=== PATIENT | female | born 1940 | race Caucasian/White ===

== ENCOUNTER 2022-09-15 11:40 | Emergency (ER) | payer MEDICARE, BC, SELFPAY ==
[2022-09-15 11:53] VITALS: BP 129/78; PULSE 70; RESP 16; TEMP 35.2; O2SAT 97; BMI 22.5
--- NOTE | 2022-09-15 12:41 | CRLHL7_ITS ---
For Patients: As a result of the Century Cures Act, medical imaging exams and procedure reports are released immediately into your electronic medical record. You may view this report before your referring provider. If you have questions, please contact your health care provider. INDICATION: IRREGULAR PULSE TECHNIQUE: Chest 1 view. COMPARISON: 12/19/14 FINDINGS: Cardiovascular and mediastinum: Heart size and vasculature are normal in caliber and appearance. Mediastinum is within normal limits. Lungs and pleural space: Lungs are clear. No sign of infiltrate or mass. No sign of pleural effusion. No pneumothorax. Bones and soft tissues: No significant findings. IMPRESSION: Unremarkable chest. Dictated by: David Uribe MD @ 09/15/2022 13:11:19 (Electronically Signed)
--- NOTE | 2022-09-15 12:43 | ED_ITS ---
HPI - Arrhythmia/Palpitations General Chief Complaint: Arrhythmia/Palpitations Stated Complaint: Afib Time Seen by Provider: 09/15/22 11:59 History of Present Illness HPI narrative: Patient is 82-year-old woman who has history of paroxysmal atrial fibrillation who comes in today with approximately 12 hours of irregular pulse. Patient practices the pill in the pocket technique with flecainide 150 mg. She took a flecainide last night but still feels like her pulse is irregular. She has had no fevers no chills no chest pain no shortness of breath no nausea no vomiting and weakness. She states that she has never had an ablation in the past but she typically goes back in to sinus rhythm on her own. Patient does take dabigatran for anticoagulation as well as extended release metoprolol for rate control/blood pressure. Related Data Home Medications Medication Instructions Recorded Confirmed alendronate 70 mg tablet 70 mg PO 08/29/22 08/29/22 dabigatran etexilate 150 mg capsule mg PO 08/29/22 08/29/22 flecainide 150 mg tablet 150 mg PO DAILY 08/29/22 08/29/22 hydrochlorothiazide 12.5 mg capsule 12.5 mg PO DAILY 08/29/22 08/29/22 metoprolol succinate 25 mg 25 mg PO DAILY 08/29/22 08/29/22 tablet,extended release 24 hr Previous Rx's Medication Instructions Recorded nirmatrelvir 300 mg (150 mg See Rx Instructions PO .COMPLEX 08/29/22 x2)-ritonavir 100 mg tablet,dose #30 ea pack(EUA) (Paxlovid) Allergies Allergy/AdvReac Type Severity Reaction Status Date / Time No Known Drug Allergies Allergy Verified 09/15/22 12:00 Review of Systems Status of ROS: Reports: 10 or more systems reviewed and unremarkable except as noted in History and below [facility] Medical History Atrial fibrillation ?I48.91 - Unspecified atrial fibrillation (ICD-10) COVID ?U07.1 - COVID-19 (ICD-10) Social History Smoking Status: Never smoker Exam Narrative: Exam Narrative: EXAM GENERAL: Patient appears comfortable and well. EYES: No scleral icterus. ENT: Tympanic membranes and oropharynx normal. THYROID: no thyroid nodules or thyromegaly. LYMPH: No supraclavicular or cervical lymphadenopathy. SKIN: Visible skin seen during exam normal or with benign process only. EXT: No dependent lower extremity pedal edema. HEART: Regular rate with occasional skipped beat. No rubs clicks gallops or murmurs. LUNGS: Clear to auscultation bilaterally with no crackles or wheezes. ABD: Soft, non tender, non distended. PSYCH: Good eye contact, speech is not pressured. Const: Vital Signs, click to edit/add: Vital Signs - 24 hr 09/15/22 11:53 Temperature 95.4 F L Pulse Rate [Pulse Oximeter] 70 Respiratory Rate 16 Blood Pressure [Ri ght Upper Arm] 129/78 Pulse Oximetry 97 Oxygen Delivery Me thod Room Air Course Course Hospital Course: EKG chest x-ray troponin CBC basic metabolic panel ordered. Patient seen and examined. Vital Signs Vital signs: Initial Vital Signs Temperature 95.4 F L 09/15/22 11:53 Temperature Source Temporal Artery Scan 09/15/22 11:53 Pulse Rate 70 09/15/22 11:53 Pulse Rhythm Irregular 09/15/22 11:53 Respiratory Rate 16 09/15/22 11:53 Blood Pressure 129/78 09/15/22 11:53 Blood Pressure Mean 95 09/15/22 11:53 Blood Pressure Position Sitting 09/15/22 11:53 Pulse Oximetry 97 09/15/22 11:53 Oxygen Delivery Method Room Air 09/15/22 11:53 Vital Signs Temperature 95.4 F L 09/15/22 11:53 Pulse Rate 70 09/15/22 11:53 Respiratory Rate 16 09/15/22 11:53 Blood Pressure 129/78 09/15/22 11:53 Pulse Oximetry 97 09/15/22 11:53 Oxygen Delivery Method Room Air 09/15/22 11:53 Temperature 95.4 F L 09/15/22 11:53 Pulse Rate 70 09/15/22 11:53 Respiratory Rate 16 09/15/22 11:53 Blood Pressure 129/78 09/15/22 11:53 Pulse Oximetry 97 09/15/22 11:53 Oxygen Delivery Method Room Air 09/15/22 11:53 MDM - Arrhythmia/Palpitations MDM Narrative Medical decision making narrative: Patient is a 82-year-old woman with history of paroxysmal atrial fibrillation anticoagulated who presents with symptoms of irregular pulse. On the monitor I do note some occasional PVCs. On her EKG I see normal sinus rhythm. Troponin is negative chest x-ray is unremarkable with the exception of chronic scoliosis. Electrolytes are stable. This time patient will continue her outpatient medication. She does have follow-up with Cardiology scheduled. Otherwise reassurance is offered. Differential Diagnosis Differential diagnosis: Likely palpitations, anxiety, sinus tachycardia, artial fibrillation, artial flutter, ventricular premature beats, supraventricular tachycardia, ventricular tachycardia and WPW Lab Data Labs: Lab Results 09/15/22 Range/Units 12:49 WBC 4.72 (4.50-11.00) K/uL RBC 3.80 L (4.00-5.20) m/uL Hgb 12.3 (12.0-16.0) gm/dL Hct 36.9 (33.0-51.0) % MCV 97 (80-100) fL MCH 32 (26-34) pg MCHC 33 (32-36) gm/dL RDW Coeff of Kandi 12.5 (11.5-15.5) % Plt Count 300 (140-440) K/uL Neut % (Auto) 67.0 (42.0-72.0) % Lymph % (Auto) 20.1 (20-44) % [place] % (Auto) 10.4 (0.0-11.0) % Eos % (Auto) 1.9 (0.0-7.0) % Baso % (Auto) 0.4 (0.0-3.0) % Neut # (Auto) 3.16 (1.7-7.0) K/uL Lymph # (Auto) 0.95 (0.90-2.90) K/uL [place] # (Auto) 0.50 (0.00-0.90) K/UL Eos # (Auto) 0.09 (0.00-0.50) K/uL Baso # (Auto) 0.02 (0.00-0.30) K/uL Sodium 136 (135-149) mmol/L Potassium 4.6 (3.6-5.1) mmol/L Chloride 101 (96-114) mmol/L Carbon Dioxide 33 H (20-32) mmol/L BUN 14 (7-30) mg/dL Creatinine 0.7 (0.5-1.5) mg/dL Estimated Creat Clear 35.26 Estimated GFR 86 ml/min Glucose 95 (60-115) mg/dL Calcium 9.1 (8.4-10.6) mg/dL Troponin I < 0.01 L (0.01-0.04) ng/mL Discharge Plan Discharge Clinical Impression: Atrial fibrillation Patient Disposition: Home, Self-Care Condition: Stable Instructions: A-fib (Atrial Fibrillation) (ED) Additional Instructions: He rhythm is normal now. Your evaluation is also normal. Please plan to continue her current medications and follow-up with cardiology as scheduled. Activity Level: No Restrictions Discharge Diet: Regular Prescriptions: No Action metoprolol succinate 25 mg tablet extended release 24 hr 25 mg PO DAILY hydrochlorothiazide 12.5 mg capsule 12.5 mg PO DAILY dabigatran etexilate 150 mg capsule PO flecainide 150 mg tablet 150 mg PO DAILY alendronate 70 mg tablet 70 mg PO Paxlovid (EUA) 300 mg (150 mg x 2)-100 mg tablets,dose pack See Rx Instructions PO .COMPLEX Qty: 30 0RF Rx Instructions: take TWO 150 mg tablets of nirmatrelvir with ONE 100 mg tablet of ritonavir twice daily for 5 days PO Follow Up/Referrals: Alejandrina Kellogg MD [Primary Care Provider] - Stand Alone Forms: MyHealth Info Instructions
[2022-09-15 12:55] LABS: Basophils Absolute Auto 0.02 K/uL (0.00-0.30); Basophils Percent Auto 0.4 % (0.0-3.0); Eosinophils Absolute Auto 0.09 K/uL (0.00-0.50); Eosinophils Percent Auto 1.9 % (0.0-7.0); Hematocrit 36.9 % (33.0-51.0); Hemoglobin* 12.3 gm/dL (12.0-16.0); Immature Granulocytes Abs Auto 0.01 K/uL (0.00-0.30); Immature Granulocytes Pct Auto 0.2 %; Lymphocytes Absolute Auto 0.95 K/uL (0.90-2.90); Lymphocytes Percent Auto 20.1 % (20-44); Mean Corpuscular HGB Conc 33 gm/dL (32-36); Mean Corpuscular Hemoglobin 32 pg (26-34); Mean Corpuscular Volume 97 fL (80-100); Monocytes Percent Auto 10.4 % (0.0-11.0); Neutrophils Absolute Auto 3.16 K/uL (1.7-7.0); Platelet Count* 300 K/uL (140-440); RDW Coefficient of Variation % 12.5 % (11.5-15.5); White Blood Count* 4.72 K/uL (4.50-11.00)
[2022-09-15 13:09] LABS: Chloride* 101 mmol/L (96-114); Sodium* 136 mmol/L (135-149)
[2022-09-15 13:10] LABS: Potassium* 4.6 mmol/L (3.6-5.1)
[2022-09-15 13:12] LABS: Carbon Dioxide* 33 mmol/L (20-32); Creatinine* 0.7 mg/dL (0.5-1.5); Est. Creatinine Clearance* 35.26; Estimated Glomerular Filt Rate 86 ml/min
[2022-09-15 13:13] LABS: Blood Urea Nitrogen* 14 mg/dL (7-30); Calcium* 9.1 mg/dL (8.4-10.6); Glucose* 95 mg/dL (60-115)
[2022-09-15 13:16] LABS: Slide Review Reflex No
[2022-09-15 13:29] LABS: Troponin I* < 0.01 ng/mL (0.01-0.04)
[2022-09-15 13:56] VITALS: BP 118/77; PULSE 70; RESP 16; O2SAT 96
== END 2022-09-15 14:08 | disposition home or self-care (01) ==
PROVIDERS: Emergency Provider Internal Medicine; PCP Family Medicine
DX: R07.89 Other chest pain (principal)
CPT/HCPCS: 36415; 71045; 80048; 84484; 85025; 93005; 99283; 99284

== ENCOUNTER 2023-05-18 11:18 | Outpatient (CLI) | payer MEDICARE, BC, SELFPAY | END 2023-05-18 11:19 | disposition home or self-care (01) | LOC: AMB 05-19 09:13 | PROVIDERS: PCP Family Medicine; Visit Provider Family Medicine | DX: U07.1 COVID-19 (principal); R42 Dizziness and giddiness; I95.9 Hypotension, unspecified | CPT/HCPCS: A0425; A0427 ==

== ENCOUNTER 2023-05-18 12:09 | Emergency (ER) | payer MEDICARE, BC, SELFPAY ==
[2023-05-18] VITALS (30 sets, daily range): BP systolic 93–119; BP diastolic 56–103; PULSE 83–160; RESP 18; TEMP 36.9; O2SAT 87–99; BMI 21.3
--- NOTE | 2023-05-18 12:45 | ED.DIZZY ---
HPI - Dizziness General Time Seen by Provider: 12:45 <Sarah Patel MD - Last Filed: 05/18/23 16:57> Date Seen: 05/18/23 <Sarah Patel MD - Last Filed: 05/18/23 16:57> Chief Complaint: Dizziness/Vertigo <Sarah Patel MD - Last Filed: 05/18/23 16:57> Stated Complaint: Lightheaded <Sarah Patel MD - Last Filed: 05/18/23 16:57> Time Seen by Provider: 05/18/23 12:45 <Sarah Patel MD - Last Filed: 05/18/23 16:57> Source: patient, family and RN notes reviewed <Sarah Patel MD - Last Filed: 05/18/23 16:57> Mode of arrival: EMS <Sarah Patel MD - Last Filed: 05/18/23 16:57> Limitations: no limitations <Sarah Patel MD - Last Filed: 05/18/23 16:57> History of Present Illness HPI Narrative: Shanti is a very pleasant 82-year-old female with a known history of atrial fibrillation currently on Pradaxa who also tested positive for COVID on MondayMay 14 who comes to the emergency room for evaluation of syncope x2. Patient notes that today she was at the kitchen sink and suddenly began to feel lightheaded. She denies vertigo. She notes that she felt like she was going to pass out so she was able to kneel on the floor. Her came in the kitchen and was able to get her to sit on the chair. She notes that she gets short of breath when this does occur. This is the 2nd time this has happened. On MondayMay 16 or 48 hours ago she had a similar incident where she actually fell onto her bottom. She notes she has has bruises on her left hip. She has been able to walk since that time. She notes no chest pain when this has occurred. She did take her medications late yesterday and actually skipped her hydrochlorothiazide as she felt that she was dehydrated. Her only symptom from COVID was a runny nose with a admittedly slight sore throat as well. She is not short of breath when lying down. She is not dizzy when lying down. We do discuss lightheadedness versus vertigo and patient denies vertigo. Patient denies hitting her head. She has no headache or visual changes. No lower extremity edema. No history of DVT. Again, on an anticoagulant. <Sarah Patel MD - Last Filed: 05/18/23 16:57> Related Data Home Medications: Home Medications Medication Instructions Recorded Confirmed alendronate 70 mg tablet 70 mg PO 08/29/22 08/29/22 dabigatran etexilate 150 mg capsule mg PO 08/29/22 08/29/22 flecainide 150 mg tablet 150 mg PO DAILY 08/29/22 08/29/22 hydrochlorothiazide 12.5 mg capsule 12.5 mg PO DAILY 08/29/22 08/29/22 metoprolol succinate 25 mg 25 mg PO DAILY 08/29/22 08/29/22 tablet,extended release 24 hr Previous Rx's Medication Instructions Recorded nirmatrelvir 300 mg (150 mg See Rx Instructions PO .COMPLEX 08/29/22 x2)-ritonavir 100 mg tablet,dose #30 ea pack (Paxlovid) <Sarah Patel MD - Last Filed: 05/18/23 16:57> Allergies/Adverse Reactions: Allergies Allergy/AdvReac Type Severity Reaction Status Date / Time No Known Drug Allergies Allergy Verified 09/15/22 12:00 <Sarah Patel MD - Last Filed: 05/18/23 16:57> Review of Systems Status of ROS: Reports: 10 or more systems reviewed and unremarkable except as noted in History and below <Sarah Patel MD - Last Filed: 05/18/23 16:57> Const: Denies: fever, chills or fatigue <Sarah Patel MD - Last Filed: 05/18/23 16:57> Eyes: Reports: other (Does feel like she loses vision before she passes out.) <Sarah Patel MD - Last Filed: 05/18/23 16:57> ENMT: Reports: nasal discharge and nasal congestion; Denies: throat pain, throat swelling, difficulty swallowing or hoarseness <Sarah Patel MD - Last Filed: 05/18/23 16:57> Cardio: Reports: lightheadedness and shortness of breath with exertion; Denies: chest pain, palpitations or swelling of feet/ankles <Sarah Patel MD - Last Filed: 05/18/23 16:57> Resp: Reports: shortness of breath; Denies: cough or wheezing <Sarah Patel MD - Last Filed: 05/18/23 16:57> GI: Denies: abdominal pain, nausea, vomiting, diarrhea or difficulty swallowing <Sarah Patel MD - Last Filed: 05/18/23 16:57> : Denies: painful urination <Sarah Patel MD - Last Filed: 05/18/23 16:57> Neuro: Denies: headache or numbness in extremities <Sarah Patel MD - Last Filed: 05/18/23 16:57> Endo: Denies: fatigue <Sarah Patel MD - Last Filed: 05/18/23 16:57> Allergy/Immuno: Denies: throat swelling or wheezing <Sarah Patel MD - Last Filed: 05/18/23 16:57> [facility] Medical History: Medical History Atrial fibrillation ?I48.91 - Unspecified atrial fibrillation (ICD-10) COVID ?U07.1 - COVID-19 (ICD-10) <Sarah Patel MD - Last Filed: 05/18/23 16:57> Social History: Social History Smoking Status: Never smoker Non-prescribed substance use: denies use <Sarah Patel MD - Last Filed: 05/18/23 16:57> Exam Narrative: Exam Narrative: Alert and oriented. Nontoxic in appearance. Slightly pale. EOM is full without nystagmus. Head is atraumatic normocephalic. Oral cavity moist mucous membranes. Neck is supple. Heart with tachycardic rate 105-122. It is irregular. Lungs are clear bilaterally. Abdomen soft nontender. Lower extremities without edema. Resolving bruise noted on left lower auguste. <Sarah Patel MD - Last Filed: 05/18/23 16:57> Const: Vital Signs, click to edit/add: Vital Signs - 24 hr 05/18/23 12:19 05/18/23 12:29 05/18/23 12:30 Temperature 98.5 F Pulse Rate 99 106 H Pulse Rate [Right Pulse Oximeter] 100 Pulse Rate [orthos tatic lying Right Pulse Oximeter] Pulse Rate [orthos tatic sitting Righ t] Pulse Rate [orthos tatic standing Rig ht] Respiratory Rate 18 Blood Pressure Blood Pressure [Ri ght Upper Arm] 111/77 Blood Pressure [or thostatic lying Ri ght Arm] Blood Pressure [or thostatic sitting Right Arm] Blood Pressure [or thostatic standing Right Arm] Pulse Oximetry 98 98 96 Oxygen Delivery Me thod Room Air 05/18/23 12:45 05/18/23 13:00 05/18/23 13:15 Temperature Pulse Rate 99 105 H 95 Pulse Rate [Right Pulse Oximeter] Pulse Rate [orthos tatic lying Right Pulse Oximeter] Pulse Rate [orthos tatic sitting Righ t] Pulse Rate [orthos tatic standing Rig ht] Respiratory Rate Blood Pressure Blood Pressure [Ri ght Upper Arm] Blood Pressure [or thostatic lying Ri ght Arm] Blood Pressure [or thostatic sitting Right Arm] Blood Pressure [or thostatic standing Right Arm] Pulse Oximetry 98 96 99 Oxygen Delivery Me thod 05/18/23 13:17 05/18/23 13:20 05/18/23 13:23 Temperature Pulse Rate 105 H 124 H Pulse Rate [Right Pulse Oximeter] Pulse Rate [orthos tatic lying Right Pulse Oximeter] Pulse Rate [orthos tatic sitting Righ t] Pulse Rate [orthos tatic standing Rig ht] Respiratory Rate Blood Pressure 111/76 96/56 L 93/74 Blood Pressure [Ri ght Upper Arm] Blood Pressure [or thostatic lying Ri ght Arm] Blood Pressure [or thostatic sitting Right Arm] Blood Pressure [or thostatic standing Right Arm] Pulse Oximetry 99 92 Oxygen Delivery Me thod 05/18/23 13:28 05/18/23 13:30 05/18/23 13:45 Temperature Pulse Rate 93 95 Pulse Rate [Right Pulse Oximeter] Pulse Rate [orthos tatic lying Right Pulse Oximeter] 101 H Pulse Rate [orthos tatic sitting Righ t] 130 H Pulse Rate [orthos tatic standing Rig ht] 160 H Respiratory Rate Blood Pressure Blood Pressure [Ri ght Upper Arm] Blood Pressure [or thostatic lying Ri ght Arm] 111/76 Blood Pressure [or thostatic sitting Right Arm] 96/56 L Blood Pressure [or thostatic standing Right Arm] 93/74 Pulse Oximetry 97 97 Oxygen Delivery Me thod 05/18/23 14:00 05/18/23 14:15 05/18/23 14:30 Temperature Pulse Rate 83 94 Pulse Rate [Right Pulse Oximeter] Pulse Rate [orthos tatic lying Right Pulse Oximeter] Pulse Rate [orthos tatic sitting Righ t] Pulse Rate [orthos tatic standing Rig ht] Respiratory Rate Blood Pressure Blood Pressure [Ri ght Upper Arm] Blood Pressure [or thostatic lying Ri ght Arm] Blood Pressure [or thostatic sitting Right Arm] Blood Pressure [or thostatic standing Right Arm] Pulse Oximetry 90 96 87 L Oxygen Delivery Me thod 05/18/23 14:50 05/18/23 15:42 05/18/23 15:44 Temperature Pulse Rate 112 H 109 H Pulse Rate [Right Pulse Oximeter] Pulse Rate [orthos tatic lying Right Pulse Oximeter] Pulse Rate [orthos tatic sitting Righ t] Pulse Rate [orthos tatic standing Rig ht] Respiratory Rate Blood Pressure 114/89 119/103 H Blood Pressure [Ri ght Upper Arm] Blood Pressure [or thostatic lying Ri ght Arm] Blood Pressure [or thostatic sitting Right Arm] Blood Pressure [or thostatic standing Right Arm] Pulse Oximetry 96 91 Oxygen Delivery [place] thod 05/18/23 15:45 05/18/23 16:00 05/18/23 16:15 Temperature Pulse Rate 124 H 93 109 H Pulse Rate [Right Pulse Oximeter] Pulse Rate [orthos tatic lying Right Pulse Oximeter] Pulse Rate [orthos tatic sitting Righ t] Pulse Rate [orthos tatic standing Rig ht] Respiratory Rate Blood Pressure Blood Pressure [Ri ght Upper Arm] Blood Pressure [or thostatic lying Ri ght Arm] Blood Pressure [or thostatic sitting Right Arm] Blood Pressure [or thostatic standing Right Arm] Pulse Oximetry 98 98 88 Oxygen Delivery Me thod 05/18/23 16:30 05/18/23 16:45 05/18/23 17:00 Temperature Pulse Rate 109 H 107 H 94 Pulse Rate [Right Pulse Oximeter] Pulse Rate [orthos tatic lying Right Pulse Oximeter] Pulse Rate [orthos tatic sitting Righ t] Pulse Rate [orthos tatic standing Rig ht] Respiratory Rate Blood Pressure Blood Pressure [Ri ght Upper Arm] Blood Pressure [or thostatic lying Ri ght Arm] Blood Pressure [or thostatic sitting Right Arm] Blood Pressure [or thostatic standing Right Arm] Pulse Oximetry 96 94 Oxygen Delivery Me thod 05/18/23 17:15 05/18/23 17:30 05/18/23 17:45 Temperature Pulse Rate 94 95 107 H Pulse Rate [Right Pulse Oximeter] Pulse Rate [orthos tatic lying Right Pulse Oximeter] Pulse Rate [orthos tatic sitting Righ t] Pulse Rate [orthos tatic standing Rig ht] Respiratory Rate Blood Pressure Blood Pressure [Ri ght Upper Arm] Blood Pressure [or thostatic lying Ri ght Arm] Blood Pressure [or thostatic sitting Right Arm] Blood Pressure [or thostatic standing Right Arm] Pulse Oximetry 90 96 97 Oxygen Delivery Me thod 05/18/23 18:00 05/18/23 18:26 05/18/23 18:30 Temperature Pulse Rate 115 H 113 H 84 Pulse Rate [Right Pulse Oximeter] Pulse Rate [orthos tatic lying Right Pulse Oximeter] Pulse Rate [orthos tatic sitting Righ t] Pulse Rate [orthos tatic standing Rig ht] Respiratory Rate Blood Pressure Blood Pressure [Ri ght Upper Arm] Blood Pressure [or thostatic lying Ri ght Arm] Blood Pressure [or thostatic sitting Right Arm] Blood Pressure [or thostatic standing Right Arm] Pulse Oximetry 93 95 96 Oxygen Delivery Me thod <Sarah Patel MD - Last Filed: 05/18/23 16:57> Vital Signs, click to edit/add: Vital Signs - 24 hr 05/18/23 12:19 05/18/23 12:29 05/18/23 12:30 Temperature 98.5 F Pulse Rate 99 106 H Pulse Rate [Right Pulse Oximeter] 100 Pulse Rate [orthos tatic lying Right Pulse Oximeter] Pulse Rate [orthos tatic sitting Righ t] Pulse Rate [orthos tatic standing Rig ht] Respiratory Rate 18 Blood Pressure Blood Pressure [Ri ght Upper Arm] 111/77 Blood Pressure [or thostatic lying Ri ght Arm] Blood Pressure [or thostatic sitting Right Arm] Blood Pressure [or thostatic standing Right Arm] Pulse Oximetry 98 98 96 Oxygen Delivery Me thod Room Air 05/18/23 12:45 05/18/23 13:00 05/18/23 13:15 Temperature Pulse Rate 99 105 H 95 Pulse Rate [Right Pulse Oximeter] Pulse Rate [orthos tatic lying Right Pulse Oximeter] Pulse Rate [orthos tatic sitting Righ t] Pulse Rate [orthos tatic standing Rig ht] Respiratory Rate Blood Pressure Blood Pressure [Ri ght Upper Arm] Blood Pressure [or thostatic lying Ri ght Arm] Blood Pressure [or thostatic sitting Right Arm] Blood Pressure [or thostatic standing Right Arm] Pulse Oximetry 98 96 99 Oxygen Delivery Me thod 05/18/23 13:17 05/18/23 13:20 05/18/23 13:23 Temperature Pulse Rate 105 H 124 H Pulse Rate [Right Pulse Oximeter] Pulse Rate [orthos tatic lying Right Pulse Oximeter] Pulse Rate [orthos tatic sitting Righ t] Pulse Rate [orthos tatic standing Rig ht] Respiratory Rate Blood Pressure 111/76 96/56 L 93/74 Blood Pressure [Ri ght Upper Arm] Blood Pressure [or thostatic lying Ri ght Arm] Blood Pressure [or thostatic sitting Right Arm] Blood Pressure [or thostatic standing Right Arm] Pulse Oximetry 99 92 Oxygen Delivery Me thod 05/18/23 13:28 05/18/23 13:30 05/18/23 13:45 Temperature Pulse Rate 93 95 Pulse Rate [Right Pulse Oximeter] Pulse Rate [orthos tatic lying Right Pulse Oximeter] 101 H Pulse Rate [orthos tatic sitting Righ t] 130 H Pulse Rate [orthos tatic standing Rig ht] 160 H Respiratory Rate Blood Pressure Blood Pressure [Ri ght Upper Arm] Blood Pressure [or thostatic lying Ri ght Arm] 111/76 Blood Pressure [or thostatic sitting Right Arm] 96/56 L Blood Pressure [or thostatic standing Right Arm] 93/74 Pulse Oximetry 97 97 Oxygen Delivery Me thod 05/18/23 14:00 05/18/23 14:15 05/18/23 14:30 Temperature Pulse Rate 83 94 Pulse Rate [Right Pulse Oximeter] Pulse Rate [orthos tatic lying Right Pulse Oximeter] Pulse Rate [orthos tatic sitting Righ t] Pulse Rate [orthos tatic standing Rig ht] Respiratory Rate Blood Pressure Blood Pressure [Ri ght Upper Arm] Blood Pressure [or thostatic lying Ri ght Arm] Blood Pressure [or thostatic sitting Right Arm] Blood Pressure [or thostatic standing Right Arm] Pulse Oximetry 90 96 87 L Oxygen Delivery [place] thod 05/18/23 14:50 05/18/23 15:42 05/18/23 15:44 Temperature Pulse Rate 112 H 109 H Pulse Rate [Right Pulse Oximeter] Pulse Rate [orthos tatic lying Right Pulse Oximeter] Pulse Rate [orthos tatic sitting Righ t] Pulse Rate [orthos tatic standing Rig ht] Respiratory Rate Blood Pressure 114/89 119/103 H Blood Pressure [Ri ght Upper Arm] Blood Pressure [or thostatic lying Ri ght Arm] Blood Pressure [or thostatic sitting Right Arm] Blood Pressure [or thostatic standing Right Arm] Pulse Oximetry 96 91 [facility] 05/[facility]/23 15:45 05/18/23 16:00 05/18/23 16:15 Temperature Pulse Rate 124 H 93 109 H Pulse Rate [Right Pulse Oximeter] Pulse Rate [orthos tatic lying Right Pulse Oximeter] Pulse Rate [orthos tatic sitting Righ t] Pulse Rate [orthos tatic standing Rig ht] Respiratory Rate Blood Pressure Blood Pressure [Ri ght Upper Arm] Blood Pressure [or thostatic lying Ri ght Arm] Blood Pressure [or thostatic sitting Right Arm] Blood Pressure [or thostatic standing Right Arm] Pulse Oximetry 98 98 88 Oxygen Delivery [place] thod 05/18/23 16:30 05/18/23 16:45 05/18/23 17:00 Temperature Pulse Rate 109 H 107 H 94 Pulse Rate [Right Pulse Oximeter] Pulse Rate [orthos tatic lying Right Pulse Oximeter] Pulse Rate [orthos tatic sitting Righ t] Pulse Rate [orthos tatic standing Rig ht] Respiratory Rate Blood Pressure Blood Pressure [Ri ght Upper Arm] Blood Pressure [or thostatic lying Ri ght Arm] Blood Pressure [or thostatic sitting Right Arm] Blood Pressure [or thostatic standing Right Arm] Pulse Oximetry 96 94 Oxygen Delivery [place] thod 05/18/23 17:15 05/18/23 17:30 05/18/23 17:45 Temperature Pulse Rate 94 95 107 H Pulse Rate [Right Pulse Oximeter] Pulse Rate [orthos tatic lying Right Pulse Oximeter] Pulse Rate [orthos tatic sitting Righ t] Pulse Rate [orthos tatic standing Rig ht] Respiratory Rate Blood Pressure Blood Pressure [Ri ght Upper Arm] Blood Pressure [or thostatic lying Ri ght Arm] Blood Pressure [or thostatic sitting Right Arm] Blood Pressure [or thostatic standing Right Arm] Pulse Oximetry 90 96 97 Oxygen Delivery Me thod 05/18/23 18:00 05/18/23 18:26 05/18/23 18:30 Temperature Pulse Rate 115 H 113 H 84 Pulse Rate [Right Pulse Oximeter] Pulse Rate [orthos tatic lying Right Pulse Oximeter] Pulse Rate [orthos tatic sitting Righ t] Pulse Rate [orthos tatic standing Rig ht] Respiratory Rate Blood Pressure Blood Pressure [Ri ght Upper Arm] Blood Pressure [or thostatic lying Ri ght Arm] Blood Pressure [or thostatic sitting Right Arm] Blood Pressure [or thostatic standing Right Arm] Pulse Oximetry 93 95 96 Oxygen Delivery Me thod <Sg Monteiro DO - Last Filed: 05/18/23 19:15> Documenting provider has reviewed patient's vital signs: yes <Sarah Patel MD - Last Filed: 05/18/23 16:57> Course Reevaluation(s) Reevaluation #1: Patient notes that after the chest x-ray she was left sitting up and after the fluids her symptoms of lightheadedness have resolved. Her heart rate has decreased to between 80 and 100s. Her chest x-ray is reassuring. Her O2 sats remain in the high 90s and she has no cough or shortness of breath at this time. Will give 2 L of normal saline as orthostatic vital signs were positive. Although her blood pressure has been running low she is on daily metoprolol which she has not taken today. Will give her her normal dose of 25 mg as I believe she will feel better if her heart rate is not in the 120s when moving about. Her arrives and is very loving and supportive. He initially describes his as being unconscious for minutes at a time. However upon further discussion this was noted to be that she was not normal for minutes but she was not unconscious. <Sarah Patel MD - Last Filed: 05/18/23 16:57> Reevaluation #2: Shanti states that she is not normally in atrial fibrillation but feels the need to use flecainide every few months for an irregular heartbeat. She is in obvious atrial fibrillation today. She notes that flecainide has worked very well for her in the past but she has had mixed messages regarding using it. One rail maintenance worker said she should be using and 1 told her not to. However, she has had a recent workup and was told that her heart was very healthy. I will speak to Cardiology regarding this. Initially metoprolol seem to be helping with decreased heart rate down to 80s to 90s with rest but now it is climbing back up again. Fortunately, her lightheadedness has entirely resolved after fluids. She was up walking has no shortness of breath, continues to have no evidence of chest pain and lightheadedness again is entirely resolved. <Sarah Patel MD - Last Filed: 05/18/23 16:57> Reevaluation #3: Nursing staff contacts me as Shanti told them that when she was wiping the genital area prior to leaving a urine sample she noticed some blood on the white. She has never had this in the past. She does not note any trauma. I did examine her bottom and she has a linear area of mucosal excoriation on the medial aspect of the labia majora just outside the labia minora. There is no surrounding erythema. This looks as if it was trauma. <Sarah Patel MD - Last Filed: 05/18/23 16:57> Consultations Consultation #1: Consult with of [facility] Cardiology regarding use of flecainide. Physician feels that this would be safer limited to try. Do inform him that Shanti is COVID positive but really has no significant systemic symptoms. We have confirmed that her dose is 150 mg from the [facility] system. <Sarah Patel MD - Last Filed: 05/18/23 16:57> Vital Signs Vital signs: Initial Vital Signs Temperature 98.5 F 05/18/23 12:19 Temperature Source Temporal Artery Scan 05/18/23 12:19 Pulse Rate 100 05/18/23 12:19 Respiratory Rate 18 05/18/23 12:19 Blood Pressure 111/77 05/18/23 12:19 Blood Pressure Mean 88 05/18/23 12:19 Blood Pressure Position Sitting 05/18/23 12:19 Pulse Oximetry 98 05/18/23 12:19 Oxygen Delivery Method Room Air 05/18/23 12:19 Vital Signs Temperature 98.5 F 05/18/23 12:19 Pulse Rate 100 05/18/23 12:19 Respiratory Rate 18 05/18/23 12:19 Blood Pressure 111/77 05/18/23 12:19 Pulse Oximetry 98 05/18/23 12:19 Oxygen Delivery Method Room Air 05/18/23 12:19 Temperature 98.5 F 05/18/23 12:19 Pulse Rate 84 05/18/23 18:30 Respiratory Rate 18 05/18/23 12:19 Blood Pressure 119/103 H 05/18/23 15:42 Pulse Oximetry 96 05/18/23 18:30 Oxygen Delivery Method Room Air 05/18/23 12:19 <Sarah Patel MD - Last Filed: 05/18/23 16:57> Initial Vital Signs Temperature 98.5 F 05/18/23 12:19 Temperature Source Temporal Artery Scan 05/18/23 12:19 Pulse Rate 100 05/18/23 12:19 Respiratory Rate 18 05/18/23 12:19 Blood Pressure 111/77 05/18/23 12:19 Blood Pressure Mean 88 05/18/23 12:19 Blood Pressure Position Sitting 05/18/23 12:19 Pulse Oximetry 98 05/18/23 12:19 Oxygen Delivery Method Room Air 05/18/23 12:19 Vital Signs Temperature 98.5 F 05/18/23 12:19 Pulse Rate 100 05/18/23 12:19 Respiratory Rate 18 05/18/23 12:19 Blood Pressure 111/77 05/18/23 12:19 Pulse Oximetry 98 05/18/23 12:19 Oxygen Delivery Method Room Air 05/18/23 12:19 Temperature 98.5 F 05/18/23 12:19 Pulse Rate 84 05/18/23 18:30 Respiratory Rate 18 05/18/23 12:19 Blood Pressure 119/103 H 05/18/23 15:42 Pulse Oximetry 96 05/18/23 18:30 Oxygen Delivery Method Room Air 05/18/23 12:19 <Sg Monteiro DO - Last Filed: 05/18/23 19:15> Medications Administered Medications: Discontinued Medications Generic Name Dose Route Start Last Admin Trade Name Freq PRN Reason Stop Dose Admin Flecainide Acetate 150 mg 05/18/23 16:48 05/18/23 17:09 Flecainide Acetate 50 Mg Tablet PO 05/18/23 16:49 150 mg ONCE ONE Administration Sodium Chloride 1,000 mls @ 1,000 mls/hr 05/18/23 13:01 05/18/23 14:41 0.9 % Sodium Chloride 1000 Ml IV 05/18/23 14:00 Infused .Q1H ROSA Infusion Sodium Chloride 1,000 mls @ 1,000 mls/hr 05/18/23 14:26 05/18/23 18:24 0.9 % Sodium Chloride 1000 Ml IV 05/18/23 15:25 Infused .Q1H ROSA Infusion Metoprolol Succinate 25 mg 05/18/23 14:45 05/18/23 14:50 Metoprolol Succinate (Xl) 25 Mg Tab PO 05/18/23 14:46 25 mg ONCE ONE Administration <Sarah Patel MD - Last Filed: 05/18/23 16:57> Discontinued Medications Generic Name Dose Route Start Last Admin Trade Name Freq PRN Reason Stop Dose Admin Flecainide Acetate 150 mg 05/18/23 16:48 05/18/23 17:09 Flecainide Acetate 50 Mg Tablet PO 05/18/23 16:49 150 mg ONCE ONE Administration Sodium Chloride 1,000 mls @ 1,000 mls/hr 05/18/23 13:01 05/18/23 14:41 0.9 % Sodium Chloride 1000 Ml IV 05/18/23 14:00 Infused .Q1H ROSA Infusion Sodium Chloride 1,000 mls @ 1,000 mls/hr 05/18/23 14:26 05/18/23 18:24 0.9 % Sodium Chloride 1000 Ml IV 05/18/23 15:25 Infused .Q1H ROSA Infusion Metoprolol Succinate 25 mg 05/18/23 14:45 05/18/23 14:50 Metoprolol Succinate (Xl) 25 Mg Tab PO 05/18/23 14:46 25 mg ONCE ONE Administration <Sg Monteiro DO - Last Filed: 05/18/23 19:15> MDM - Dizziness MDM Narrative Medical decision making narrative: 1. Syncope-patient was orthostatic upon her arrival and has had complete resolution of her symptoms with 2 L of fluid. Troponin is negative x2 and EKGs are reassuring. Certainly she is showing atrial fibrillation but no long pauses. She is currently on a blood thinner and did have her dose yesterday. Upon discussion with her it sounded like she was unresponsive for minutes but we have clarified that to be not her normal self but she was making purposeful movements. Lying down she felt fine she only had symptoms when she would stand up and again now these have resolved. No evidence of acute coronary event, PE as O2 sats are normal. Fluids have resolved the situation. 2. Atrial fibrillation with RVR-patient did receive metoprolol 25 mg which is are normal dose that she did not have today in the ED. Initially this did seem to help her AFib but now her heart rate is climbing again. We will try flecainide to see if this improves are situation. I did speak to Cardiology regarding the use of this medication in the ED. 3. COVID-patient has normal O2 sats, clear x-ray and really her only symptom is a runny nose. She is not currently on Paxlovid. 4. Disposition-patient will be discharged home <Sarah Patel MD - Last Filed: 05/18/23 16:57> Patient was signed out to me pending heart rate recheck. After 45 minutes after she got the flecainide patient was still tachycardic gone from the will low 100s to the mid 140s. It was decided to page Cardiology. Right before they called back she went into normal sinus rhythm and a repeat EKG was done showing a normal sinus rhythm. EKG showed normal sinus rhythm they have 86 beats per minute, normal intervals, normal axis, no ST or T-wave abnormalities. She is asymptomatic at this time. Patient will follow-up with primary care provider. <Sg Monteiro DO - Last Filed: 05/18/23 19:15> Medical Records Attestation: I reviewed the patient's medical records. <Sarah Patel MD - Last Filed: 05/18/23 16:57> Lab Data Attestation: I reviewed the patient's lab results. <Sarah Patel MD - Last Filed: 12/07/23 16:57> Labs: Lab Results 05/18/23 05/18/23 05/18/23 Range/Units 13:00 13:28 15:40 WBC 6.10 (4.50-11.00) K/uL RBC 4.32 (4.00-5.20) m/uL Hgb 14.0 (12.0-16.0) gm/dL Hct 41.3 (33.0-51.0) % MCV 96 (80-100) fL MCH 32 (26-34) pg MCHC 34 (32-36) gm/dL RDW Coeff of K[place] 12.5 (11.5-15.5) % Plt Count 274 (140-440) K/uL Neut % (Auto) 72.1 H (42.0-72.0) % Lymph % (Auto) 16.2 L (20-44) % [place] % (Auto) 10.5 (0.0-11.0) % Eos % (Auto) 0.8 (0.0-7.0) % Baso % (Auto) 0.2 (0.0-3.0) % Neut # (Auto) 4.40 (1.7-7.0) K/uL Lymph # (Auto) 1.00 (0.90-2.90) K/uL [place] # (Auto) 0.60 (0.00-0.90) K/UL Eos # (Auto) 0.05 (0.00-0.50) K/uL Baso # (Auto) 0.01 (0.00-0.30) K/uL Abs Immat Gran (auto) 0.01 (0.00-0.30) K/uL Imm/Tot Granulo (auto) 0.2 % Sodium 127 L (135-149) mmol/L Potassium 3.5 L (3.6-5.1) mmol/L Chloride 95 L (96-114) mmol/L Carbon Dioxide 26 (20-32) mmol/L Anion Gap 6 L (7-15) mEq/L BUN 17 (7-30) mg/dL Creatinine 0.6 (0.5-1.5) mg/dL Estimated Creat Clear 35.26 Estimated GFR 89 ml/min Glucose 108 (60-115) mg/dL Lactate 1.5 (0.5-1.9) mmol/L Calcium 8.5 (8.4-10.6) mg/dL Magnesium 1.9 (1.5-2.6) mg/dL Total Bilirubin 0.3 (0.1-1.5) mg/dL AST 27 (12-35) U/L ALT 17 (4-35) U/L Alkaline Phosphatase 44 (40-150) U/L Troponin I 0.01 (0.01-0.04) ng/mL C-Reactive Protein 2.0 H (0.5-1.0) mg/dL Total Protein 6.8 (6.0-8.3) g/dL Albumin 3.8 (3.3-5.0) g/dL Urine Color Yellow (Yellow) Urine Appearance Clear (Clear) Urine pH 6.0 (5.0-8.5) Ur Specific [place] <= 1.005 (1.000-1.030) Urine Protein Negative (Negative) Urine Glucose (UA) Negative (Negative) Urine Ketones Negative (Negative) Urine Blood 2+ A (Negative) Urine Nitrite Negative (Negative) Urine Bilirubin Negative (Negative) Urine Urobilinogen 0.2 (0.2-1.0) Ur Leukocyte Esterase Negative (Negative) Urine RBC 0-2 (0-2) Urine WBC 0-2 (0-5) Ur Squamous Epith Cells None (None-Few) Urine Bacteria None (None) POC Troponin I 0.01 (0.01-0.04) ng/ml <Sarah Patel MD - Last Filed: 05/18/23 16:57> Lab Results 05/18/23 05/18/23 05/18/23 Range/Units 13:00 13:28 15:40 WBC 6.10 (4.50-11.00) K/uL RBC 4.32 (4.00-5.20) m/uL Hgb 14.0 (12.0-16.0) gm/dL Hct 41.3 (33.0-51.0) % MCV 96 (80-100) fL MCH 32 (26-34) pg MCHC 34 (32-36) gm/dL RDW Coeff of Kandi 12.5 (11.5-15.5) % Plt Count 274 (140-440) K/uL Neut % (Auto) 72.1 H (42.0-72.0) % Lymph % (Auto) 16.2 L (20-44) % [place] % (Auto) 10.5 (0.0-11.0) % Eos % (Auto) 0.8 (0.0-7.0) % Baso % (Auto) 0.2 (0.0-3.0) % Neut # (Auto) 4.40 (1.7-7.0) K/uL Lymph # (Auto) 1.00 (0.90-2.90) K/uL [place] # (Auto) 0.60 (0.00-0.90) K/UL Eos # (Auto) 0.05 (0.00-0.50) K/uL Baso # (Auto) 0.01 (0.00-0.30) K/uL Abs Immat Gran (auto) 0.01 (0.00-0.30) K/uL Imm/Tot Granulo (auto) 0.2 % Sodium 127 L (135-149) mmol/L Potassium 3.5 L (3.6-5.1) mmol/L Chloride 95 L (96-114) mmol/L Carbon Dioxide 26 (20-32) mmol/L Anion Gap 6 L (7-15) mEq/L BUN 17 (7-30) mg/dL Creatinine 0.6 (0.5-1.5) mg/dL Estimated Creat Clear 35.26 Estimated GFR 89 ml/min Glucose 108 (60-115) mg/dL Lactate 1.5 (0.5-1.9) mmol/L Calcium 8.5 (8.4-10.6) mg/dL Magnesium 1.9 (1.5-2.6) mg/dL Total Bilirubin 0.3 (0.1-1.5) mg/dL AST 27 (12-35) U/L ALT 17 (4-35) U/L Alkaline Phosphatase 44 (40-150) U/L Troponin I 0.01 (0.01-0.04) ng/mL C-Reactive Protein 2.0 H (0.5-1.0) mg/dL Total Protein 6.8 (6.0-8.3) g/dL Albumin 3.8 (3.3-5.0) g/dL Urine Color Yellow (Yellow) Urine Appearance Clear (Clear) Urine pH 6.0 (5.0-8.5) Ur Specific [place] <= 1.005 (1.000-1.030) Urine Protein Negative (Negative) Urine Glucose (UA) Negative (Negative) Urine Ketones Negative (Negative) Urine Blood 2+ A (Negative) Urine Nitrite Negative (Negative) Urine Bilirubin Negative (Negative) Urine Urobilinogen 0.2 (0.2-1.0) Ur Leukocyte Esterase Negative (Negative) Urine RBC 0-2 (0-2) Urine WBC 0-2 (0-5) Ur Squamous Epith Cells None (None-Few) Urine Bacteria None (None) POC Troponin I 0.01 (0.01-0.04) ng/ml <Sg Monteiro DO - Last Filed: 05/18/23 19:15> Imaging Data Chest x-ray: Attestation: I have reviewed the pertinent imaging results. <Sarah Patel MD - Last Filed: 05/18/23 16:57> My impression: I do not note any acute infiltrates. <Sarah Patel MD - Last Filed: 05/18/23 16:57> Radiologist's impression: Cardiovasculature and mediastinum: Heart size and vasculature are normal in caliber and appearance. Lungs and pleural spaces: Lungs are clear. No sign of infiltrate or mass. No sign of pleural effusion. No pneumothorax. Likely chronic emphysematous changes. Bones and soft tissues: No significant findings. IMPRESSION: No acute cardiopulmonary process. <Sarah Patel MD - Last Filed: 05/18/23 16:57> ECG Data Attestation: I personally reviewed and interpreted this ECG as follows: <Sarah Patel MD - Last Filed: 05/18/23 16:57> ECG interpretation date: 05/18/23 <Sarah Patel MD - Last Filed: 05/18/23 16:57> Interpretation: 1. EKG by my read shows atrial fibrillation with RVR at a rate of 101. Note monitor occasionally says 110-122. I do not note any ST changes at this time. QT and TX intervals within normal limits. 2. <Sarah Patel MD - Last Filed: 05/18/23 16:57> 1. EKG by my read shows atrial fibrillation with RVR at a rate of 101. Note monitor occasionally says 110-122. I do not note any ST changes at this time. QT and TX intervals within normal limits. <Sg Monteiro DO - Last Filed: 05/18/23 19:15> Discharge Plan Discharge Clinical Impression: COVID, Orthostatic hypotension, Atrial fibrillation <Sarah Patel MD - Last Filed: 05/18/23 16:57> Patient Disposition: Home, Self-Care <Sarah Patel MD - Last Filed: 05/18/23 16:57> Condition: Improved <Sarah Patel MD - Last Filed: 05/18/23 16:57> Additional Instructions: Keep well hydrated. Seek medical attention for worsening symptoms. Call your primary care provider about getting an earlier appointment. 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 If he start feeling symptomatic again you can take your flecainide. Do not take more than 300 mg a day and try to only take it every 12 hours. <Sarah Patel MD - Last Filed: 05/18/23 16:57> Prescriptions: No Action metoprolol succinate 25 mg tablet extended release 24 hr 25 mg PO DAILY hydrochlorothiazide 12.5 mg capsule 12.5 mg PO DAILY dabigatran etexilate 150 mg capsule PO flecainide 150 mg tablet 150 mg PO DAILY alendronate 70 mg tablet 70 mg PO Paxlovid 300 mg (150 mg x 2)-100 mg tablets,dose pack See Rx Instructions PO .COMPLEX Qty: 30 0RF Rx Instructions: take TWO 150 mg tablets of nirmatrelvir with ONE 100 mg tablet of ritonavir twice daily for 5 days PO <Sarah Patel MD - Last Filed: 05/18/23 16:57> Follow Up/Referrals: Alejandrina Kellogg MD [Referring] - <Sarah Patel MD - Last Filed: 05/18/23 16:57> Stand Alone Forms: [facility] Info Instructions <Sarah Patel MD - Last Filed: 05/18/23 16:57>
--- NOTE | 2023-05-18 13:00 | CRLHL7_ITS ---
For Patients: As a result of the Century Cures Act, medical imaging exams and procedure reports are released immediately into your electronic medical record. You may view this report before your referring provider. If you have questions, please contact your health care provider. INDICATION: Tachycardia TECHNIQUE: Chest 1 views. COMPARISON: Chest radiograph on September 15, 2022 FINDINGS: Cardiovasculature and mediastinum: Heart size and vasculature are normal in caliber and appearance. Lungs and pleural spaces: Lungs are clear. No sign of infiltrate or mass. No sign of pleural effusion. No pneumothorax. Likely chronic emphysematous changes. Bones and soft tissues: No significant findings. IMPRESSION: No acute cardiopulmonary process. Dictated by Melvin Bell MD @ 05/18/2023 2:27:53 PM (Electronically Signed)
[2023-05-18 13:33] LABS: Lactate* 1.5 mmol/L (0.5-1.9)
[2023-05-18 13:37] LABS: Basophils Absolute Auto 0.01 K/uL (0.00-0.30); Basophils Percent Auto 0.2 % (0.0-3.0); Eosinophils Absolute Auto 0.05 K/uL (0.00-0.50); Eosinophils Percent Auto 0.8 % (0.0-7.0); Hematocrit 41.3 % (33.0-51.0); Immature Granulocytes Abs Auto 0.01 K/uL (0.00-0.30); Immature Granulocytes Pct Auto 0.2 %; Lymphocytes Percent Auto 16.2 % (20-44); Mean Corpuscular HGB Conc 34 gm/dL (32-36); Mean Corpuscular Hemoglobin 32 pg (26-34); Mean Corpuscular Volume 96 fL (80-100); Monocytes Percent Auto 10.5 % (0.0-11.0); Neutrophils Percent Auto 72.1 % (42.0-72.0); Platelet Count* 274 K/uL (140-440); RDW Coefficient of Variation % 12.5 % (11.5-15.5); Red Blood Count 4.32 m/uL (4.00-5.20)
[2023-05-18] MEDS: 0.9 % SODIUM CHLORIDE 1000 ml 1,000 ML IV ×2 (13:41→14:50)
[2023-05-18 13:48] LABS: Slide Review Reflex No
[2023-05-18 13:59] LABS: Albumin* 3.8 g/dL (3.3-5.0); Chloride* 95 mmol/L (96-114); Sodium* 127 mmol/L (135-149)
[2023-05-18 13:59] LABS: Troponin, Point-of-Care* 0.01 ng/ml (0.01-0.04)
[2023-05-18 14:00] LABS: Potassium* 3.5 mmol/L (3.6-5.1)
[2023-05-18 14:02] LABS: Alanine Aminotransferase* 17 U/L (4-35); Alkaline Phosphatase* 44 U/L (40-150); Anion Gap 6 mEq/L (7-15); Aspartate Amino Transferase* 27 U/L (12-35); Bilirubin Total* 0.3 mg/dL (0.1-1.5); Blood Urea Nitrogen* 17 mg/dL (7-30); Carbon Dioxide* 26 mmol/L (20-32); Creatinine* 0.6 mg/dL (0.5-1.5); Est. Creatinine Clearance* 35.26; Estimated Glomerular Filt Rate 89 ml/min; Glucose* 108 mg/dL (60-115); Total Protein* 6.8 g/dL (6.0-8.3)
[2023-05-18 14:03] LABS: Calcium* 8.5 mg/dL (8.4-10.6); Magnesium* 1.9 mg/dL (1.5-2.6)
[2023-05-18] MEDS: METOPROLOL SUCCINATE (XL) 25 MG TAB PO (14:50)
[2023-05-18 16:11] LABS: Troponin I* 0.01 ng/mL (0.01-0.04)
[2023-05-18 16:46] LABS: Appearance Urine Clear (Clear); Bilirubin Urine Negative (Negative); Blood Urine 2+ (Negative); Color Urine Yellow (Yellow); Glucose Urine Negative (Negative); Ketones Urine Negative (Negative); Leukocyte Esterase Urine Negative (Negative); Nitrite Urine Negative (Negative); Protein Urine Negative (Negative); Specific Gravity Urine <= 1.005 (1.000-1.030); Urobilinogen Urine 0.2 (0.2-1.0)
[2023-05-18 17:07] LABS: RBC Urine 0-2 (0-2); WBC Urine 0-2 (0-5)
[2023-05-18] MEDS: FLECAINIDE ACETATE 50 MG TABLET 150 MG PO (17:09)
== END 2023-05-18 19:43 | disposition home or self-care (01) ==
PROVIDERS: Family Medicine; Emergency Provider Student in an Organized Health Care Education/Training Program; PCP Family Medicine
DX: I48.20 Chronic atrial fibrillation, unspecified (principal); I95.1 Orthostatic hypotension; U07.1 COVID-19
CPT/HCPCS: 36415; 71045; 80053; 81001; 83605; 83735; 84484; 85025; 86140; 93005; 99285; A9270; J7030

== ENCOUNTER 2023-07-15 15:20 | Emergency (ER) | payer MEDICARE, BC, SELFPAY ==
[2023-07-15 15:24] VITALS: BP 143/88; PULSE 66; RESP 18; TEMP 36.5; O2SAT 99; BMI 22.1
--- NOTE | 2023-07-15 15:41 | CRLHL7_ITS ---
For Patients: As a result of the Cures Act, medical imaging exams and procedure reports are released immediately into your electronic medical record. You may view this report before your referring provider. If you have questions, please contact your health care provider. INDICATION: Injury. 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 No evidence of acute fracture or dislocation. No other bony or soft tissue abnormalities identified. Dictated by Tanner Lund MD @ 07/15/2023 5:11:50 PM Dictated by: Tanner Lund MD @ 07/15/2023 17:11:57 (Electronically Signed)
--- NOTE | 2023-07-15 15:42 | ED.GENADULT ---
HPI - General Adult General Chief complaint: Extremity Pain/Injury, Upper Stated complaint: hurt & painful right wrist Time Seen by Provider: 07/15/23 15:29 History of Present Illness HPI narrative: This 82-year-old female comes in with injury and pain to her right wrist. She states that she has been having some pain in this wrist over the past few weeks. Today she was clapping her hands and had sudden onset of pain in the right wrist and now has some swelling and ecchymosis developing. She does not report any other injury. She has atrial fibrillation but is otherwise in her normal health. Related Data Home Medications Medication Instructions Recorded Confirmed alendronate 70 mg tablet 70 mg PO 08/29/22 08/29/22 dabigatran etexilate 150 mg capsule mg PO 08/29/22 08/29/22 flecainide 150 mg tablet 150 mg PO DAILY 08/29/22 08/29/22 hydrochlorothiazide 12.5 mg capsule 12.5 mg PO DAILY 08/29/22 08/29/22 metoprolol succinate 25 mg 25 mg PO DAILY 08/29/22 08/29/22 tablet,extended release 24 hr Previous Rx's Medication Instructions Recorded nirmatrelvir 300 mg (150 mg See Rx Instructions PO .COMPLEX 08/29/22 x2)-ritonavir 100 mg tablet,dose #30 ea pack (Paxlovid) hydrocodone 5 mg-acetaminophen 325 1 tab PO Q4-6H PRN pain #10 tabs 07/15/23 mg tablet Allergies Allergy/AdvReac Type Severity Reaction Status Date / Time No Known Drug Allergies Allergy Verified 09/15/22 12:00 Review of Systems Status of ROS: Reports: 10 or more systems reviewed and unremarkable except as noted in History and below Narrative: Constitutional: No fevers, no weight gain or loss. Eyes: No discharge. No vision changes. HENT: No congestion, no sore throat, no ear pain. Cardiovascular: No chest pain, no palpitations. Respiratory: No shortness of breath, no wheezes, no cough. Gastrointestinal: No abdominal pain, no vomiting, no diarrhea. Genitourinary: No dysuria, no hematuria. Musculoskeletal: Right wrist pain and swelling as described above. Skin: No rashes, no pruritis. Neurological: No dizziness, weakness, sensory change, speech change. Endo/Heme/Allergies: No bruising or bleeding. No polydipsia. Pysch: no suicidality, no anxiety, no insomnia. All other systems reviewed and are negative. [facility] Medical History Atrial fibrillation ?I48.91 - Unspecified atrial fibrillation (ICD-10) COVID ?U07.1 - COVID-19 (ICD-10) Social History Smoking Status: Never smoker Do you use any of these nicotine containing products: None Second hand tobacco smoke exposure: No How often do you have a drink containing alcohol: never How often do you have six or more drinks on one occasion: Never AUDIT-C Alcohol total score: 0 Non-prescribed substance use: denies use service: No Exam Narrative: Exam Narrative: Constitutional: Well-developed, well-nourished, no acute distress. HEENT: Normocephalic, atraumatic. Neck: Normal range of motion. Nontender. Supple. Heart: Regular. No murmurs. Normal rate. Intact distal pulses. Lungs: Clear to auscultation. No chest discomfort. No wheezes, rhonchi, or rales. Abdomen: Normal bowel sounds. Nontender. No rebound tenderness. Genitalia: Deferred. Back: No midline tenderness. Normal range of motion. Extremities: Pain and swelling in the volar aspect of the right wrist. Skin: Intact. No rash. Warm. No erythema or pallor. Neurologic: No altered sensation. No weakness. Alert and oriented. Psychiatric: No suicidality. No anxiety or depression. No insomnia. Nursing notes and vitals signs are reviewed. Const: Vital Signs, click to edit/add: Vital Signs - 24 hr 07/15/23 15:24 Temperature 97.7 F Pulse Rate [Right Pulse Oximeter] 66 Respiratory Rate 18 Blood Pressure [Ri ght Upper Arm] 143/88 H Pulse Oximetry 99 Oxygen Delivery Me thod Room Air Course Vital Signs Vital signs: Initial Vital Signs Temperature 97.7 F 07/15/23 15:24 Temperature Source Temporal Artery Scan 07/15/23 15:24 Pulse Rate 66 07/15/23 15:24 Respiratory Rate 18 07/15/23 15:24 Blood Pressure 143/88 H 07/15/23 15:24 Blood Pressure Mean 106 H 07/15/23 15:24 Blood Pressure Position Sitting 07/15/23 15:24 Pulse Oximetry 99 07/15/23 15:24 Oxygen Delivery Method Room Air 07/15/23 15:24 Vital Signs Temperature 97.7 F 07/15/23 15:24 Pulse Rate 66 07/15/23 15:24 Respiratory Rate 18 07/15/23 15:24 Blood Pressure 143/88 H 07/15/23 15:24 Pulse Oximetry 99 07/15/23 15:24 Oxygen Delivery Method Room Air 07/15/23 15:24 Temperature 97.7 F 07/15/23 15:24 Pulse Rate 66 07/15/23 15:24 Respiratory Rate 18 07/15/23 15:24 Blood Pressure 143/88 H 07/15/23 15:24 Pulse Oximetry 99 07/15/23 15:24 Oxygen Delivery Method Room Air 07/15/23 15:24 Medications Administered Medications: Generic Name Dose Route Start Last Admin Trade Name Freq PRN Reason Stop Dose Admin Hydromorphone HCl 0.3 mg 07/15/23 16:14 07/15/23 16:18 Hydromorphone 0.5 Mg/0.5 Ml Inj IM 07/15/23 16:15 0.3 mg ONCE ONE Administration Medical Decision Making MDM Narrative Medical decision making narrative: This patient comes in with a painful right wrist with swelling and ecchymosis over the volar aspect at the wrist joint. The mechanism of injury was rather minimal as she was simply clapping her hands. The patient has atrial fibrillation and is taking Pradaxa. X-ray imaging is obtained and shows no sign of fracture or dislocation. She has had a previous surgery to this hand and wrist. The patient did receive an intramuscular injection of Dilaudid 0.3 mg and this brought great relief to her pain. She likely has a hematoma exacerbated by her anticoagulant therapy. The patient is okay to return home. She did receive a wrist splint and a prescription for some tablets of [place]. 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 No evidence of acute fracture or dislocation. No other bony or soft tissue abnormalities identified. Discharge Plan Discharge Clinical Impression: Injury of wrist, right Patient Disposition: Home, Self-Care Condition: Improved Additional Instructions: Wear splint as needed. Use pain medicine also as needed and directed. Follow-up with orthopedic clinic or return if worsening. Prescriptions: New hydrocodone-acetaminophen 5-325 mg tablet 1 tab PO Q4-6H PRN (Reason: pain) Qty: 10 0RF No Action metoprolol succinate 25 mg tablet extended release 24 hr 25 mg PO DAILY hydrochlorothiazide 12.5 mg capsule 12.5 mg PO DAILY dabigatran etexilate 150 mg capsule PO flecainide 150 mg tablet 150 mg PO DAILY alendronate 70 mg tablet 70 mg PO Paxlovid 300 mg (150 mg x 2)-100 mg tablets,dose pack See Rx Instructions PO .COMPLEX Qty: 30 0RF Rx Instructions: take TWO 150 mg tablets of nirmatrelvir with ONE 100 mg tablet of ritonavir twice daily for 5 days PO Follow Up/Referrals: Zachary Quijano MD [Primary Care Provider] - Stand Alone Forms: [facility] Info Instructions
[2023-07-15] MEDS: HYDROmorphone 0.5 mg/0.5 ml inj 0.3 MG IM (16:18)
== END 2023-07-15 17:40 | disposition home or self-care (01) ==
PROVIDERS: Emergency Provider Emergency Medicine Emergency Medical Services; PCP Family Medicine
DX: M25.531 Pain in right wrist (principal)
CPT/HCPCS: 29125; 73110; 96372; 99283; 99284; J1170

== ENCOUNTER 2024-08-30 19:24 | Emergency (ER) | payer MEDICARE, BC, SELFPAY ==
--- OUTSIDE RECORDS SUMMARY | 2024-08-30 19:26 | XMS_ITS | Clinical Summary ---
Author Organization [employer] [facility] Address [address] [place] [address] Care Team Providers Care Clinical Data Programmer Name Role Phone Mike Pichardo MD Unavailable Gala vailaAnnette Perales Unavailable [phone] Zachary Quijano MD Primary Care Provider Allergies Active Allergy Reactions Criticality Noted Date Comments Morphine GI Upset 08/23/2007 Medications FIBERCON 625 MG TAB 1 cap daily 0 9 Active calcium carbonate, Each tab delivers 600 mg Calcium, (CALTRATE 600) 600 mg (1,500 mg) tablet Take 1 tablet by mouth 2 times daily with meals. 0 1 Active omeprazole 20 mg tabletIndications :Heartburn Take 1 Tablet (20 mg) by mouth once daily before a meal. 90 Tablet 2 3 Active flecainide (TAMBOCOR) 150 mg tabletIndications :Paroxysmal atrial fibrillation (HC) TAKE ONE TABLET BY MOUTH FOR EPISODE OF ATRIAL FIB. MAX ONE DAILY. 10 Tablet 2 4 Active metoprolol succinate (TOPROL XL) 25 mg Sustained-Release tabletIndications :Paroxysmal atrial fibrillation (HC) Take 1 Tablet (25 mg) by mouth two times daily. 180 Tablet 3 4 Active hydroCHLOROthiazi de 12.5 mg capsuleIndication s:Bilateral edema of lower extremity Take 1 Capsule (12.5 mg) by mouth once daily. 90 Capsule 3 5 Active Eliquis 2.5 mg tabletIndications :Paroxysmal atrial fibrillation (HC) TAKE 1 TABLET(2.5 MG) BY MOUTH TWICE DAILY 60 Tablet 11 5 Active alendronate (FOSAMAX) 70 mg tabletIndications :Osteopenia, unspecified location Take 1 Tablet (70 mg) by mouth once a week in the morning. Take on empty stomach with full glass of water. Do not lie down for 1 hr. 13 Tablet 2 5 Active Active Problems Problem Noted Date Diagnosed Date Trigger middle finger of right hand 08/21/2023 Trigger ring finger of right hand 08/21/2023 PSVT (paroxysmal supraventricular tachycardia) 0 06/19/2023 Paroxysmal atrial fibrillation 12/30/2010 Overview (08/26/2014): Initial diagnosis 2010 Spontaneously converted ECHO normal 2010 Osteopenia 12/30/2010 Overview (12/30/2010): DEXA 2010 Colon polyp 11/05/2009 Overview (03/23/2020): Colonoscopy 10/2009 polyp repeat in 5 years Colonoscopy 10/2014 normal repeat in 5 years Colonoscopy 03/2020 normal, repeat in 5 years Hallux valgus with bunions, right Hammer toe of right foot Metatarsalgia, right foot Resolved Problems Problem Noted Date Diagnosed Date Resolved Date Polyp of colon 11/30/2017 06/19/2023 Bilateral edema of lower extremity 11/23/2016 06/20/2024 Encounters Date Type Department Care Team Description 08/26/2024 2:30 PM CDT Office Visit [facility] [address] [place] [address] Zachary Quijano MD Shoulder Pain/problem (Right shoulder pain, started 08/17/2024, no known injury) 08/25/2024 Travel 07/29/2024 Orders Only [facility] [address] [place] [address] Zachary Quijano MD Lab 07/29/2024 Orders Only [facility] [address] [place] [address] Zachary Quijano MD <No scans attached> 07/22/2024 Refill [facility] [address] [place] [address] Polly Corrigan MD Refill Request (Eliquis) 07/20/2024 Refill [facility] [address] [place] [address] Zachary Quijano MD Refill Request (Alendronate) 06/27/2024 10:30 AM BIN CLEANER Ancillary Procedure [facility] [address] [place] [address] 06/27/2024 Travel 06/25/2024 11:00 AM BIN CLEANER Ancillary Procedure [facility] [address] [place] [address] 06/25/2024 Travel 06/22/2024 Travel 06/20/2024 10:40 AM BIN CLEANER Ancillary Procedure [facility] [address] [place] [address] 06/20/2024 9:20 AM BIN CLEANER Office Visit [facility] [address] [place] [address] Zachary Quijano MD Medicare ANNUAL (subsequent) Visit (83 year old) 06/20/2024 Travel 06/16/2024 Travel from Last 3 Months Immunizations Immunization Administration Dates Next Due Amb Influenza, Inact (High-d ose Quadrivalent) (Flu Clinic Only) 03/11/2020 COVID-19 vaccine ([employer] 30mcg/0.3mL) PFROSALIE 08/18/2020,07/28/2020 HepA-HepB (Twinrix) 08/09/2002 Hepatitis A (Adult) 01/10/2002 Hepatitis B (Adult) 02/14/2002,01/10/2002 Inactivated Polio Vaccine 02/14/2002 Influenza A (H1N1), Inactivated 07/01/2009 Influenza A (H1N1), Inactiva guille (Age >=3 Years) 07/01/2009 Influenza, High-dose Inactivated 10/15/2 024,03/04/2019,03/27/2018,03/28,04/12/2016,02/27/2015,03/24/2014 Influenza, IIV3 (Age 6-35 mos) 02/22/2011,2009 Influenza, IIV3 (Age >=3 years) 04/16/20 13,03/29/2012,02/22/2011,03/03,05/09/2007,03/28/2005 Influenza, IIV4 03/07/2022 Influenza, Inactivated AIIV4 (Age 65+ Years) Preserv Free 04/17/2023,03/07/2022,03/30/2021 Pneumococcal Conj 20-valent (Prevnar 20) 04/17/2023 Pneumococcal Poly,23-Valent (Pneumovax) 07/18/2006 Pneumococcal conj 13-Valent (Prevnar 13) 08/26/2014 RSV, Recombinant ADJ Reconst ituted (Arexvy 120MCG/0.5mL) 05/02/2023 Td (Age >=7 Years) 01/03/2005 Td, Preservative Free (age >= 7 Years) 5 Tdap 10/29/2021,12/15/2010 Tuberculin (PPD) 06/16/2008 Typhoid (injectable) 04/26/2016,06/16/2008,01/10 Yellow Fever 01/10/2002 Zoster (Shingrix-RZV, recombinant) 10/23/2018, Zoster (Zostavax-ZVL, live) 08/23/2007 Family History Medical History Relation Name Comments Heart Disease Father Osteoporosis Mother Other Mother chf Relation Name Status Comments Father Mother Social History Tobacco Use Types Packs/Day Years Used Date Smoking Tobacco: Never Smokeless Tobacco: Never Tobacco Cessation:Counseling Given: No Alcohol Use Standard Drinks/Week Comments Yes 0 (1 standard drink = 0.6 oz pur e alcohol) 1 glass of wine every evening PHQ-2 Answer Date Recorded PHQ-2 TOTAL SCORE 0 06/20/2024 Social Connections Answer Date Recorded Do you often feel lonely or isolated from those around you? 0 06/16/2024 Alcohol Use Answer Date Recorded How often do you have a drink containing alcohol ? 4 08/19/2022 How many drinks containing a lcohol do you have on a typical day when you are drinking? 0 08/19/2022 How often do you have five or more drinks on one occasion? 0 08/19/2022 Financial Resource Strain Answer Date R ecorded Difficulty of Paying Living Expenses 3 06/16/2024 Difficulty of Paying Living Expenses Not on file 06/16/2024 Food Insecurity Answer Date Recorded Do you worry your food will run out before you are able to buy more? 1 06/16/2024 Transportation Needs Answer Date Record ed Does lack of transportation keep you from medica l appointments? 1 06/16/2024 Does lack of transportation keep you from work, meetings or getting things that you need? 1 06/16/2024 Housing Stability Answer Date Recorded What is your housing situation today? 1 06/16/2024 Utilities Answer Date Recorded Do you have trouble paying f or utilities (for example, heat, electricity, water, phone)? 1 06/16/2024 Comments No Sex and Gender Information Value Date Recorded Sex Assigned at Not on file Legal Sex Female 5:24 AM BIN CLEANER Gender Identity Not on file Sexual Orientation Not on file Obstetrics History Para Term AB IAB SAB Ectopic Multiple Livin g Live Births 4 3 3 0 1 0 0 0 0 3 Date Outcome GA Total Labor Labor/2nd/3rd Weight Sex Type Anes PTL Patricia A1 A5 Name Clin Term Term Term AB Last Filed Vital Signs Vital Sign Reading Time Taken Comments Blood Pressure 101/67 08/26/2024 2:21 PM CDT Pulse 85 08/26/2024 2:50 PM CDT Temperature 36.7 C (98 F) 12/03/2018 3:46 PM CDT Respiratory Rate 16 02/19/2018 4:30 PM CDT Oxygen Saturation 99% 08/26/2024 2:21 PM CDT Inhaled Oxygen Concentration - - Weight 57.2 kg (126 lb 3.2 oz) 08/26/2024 2:21 P M CDT Height 158.1 cm (5' 2.24) 06/20/2024 9:17 AM CS T Body Mass Index 22.9 06/20/2024 9:17 AM BIN CLEANER Plan of Treatment Upcoming Encounters Date Type Department Care Team (Late st Contact Info) Description 09/10/2024 11:00 AM CDT Office Visit Formerly Named [facility] [address] [place] [address] Polly Corrigan MD [address] [place] [address] Health Maintenance Due Date Last Done Comments COVID-19 vaccine series ( season) 2024 05/17/2024, 04/03/2023, 03/07/2022, Additional history exists BMI (ht and wt on same day) for age 18+ 06/20/2025 06/20/2024, 06/19/2023, 05/16/2022, Additional history exists Depression screening for age 12+ 06/20/2025 06/20/2024, 06/19/2023, 05/16/2022, Additional history exists Medicare Wellness for age 65+ 06/21/2025, 06/19/2023, 05/16/2022, Additional history exists Tetanus booster 10/30/2031 10/29/2021, 07/0 11/2010, 01/03/2005, Additional history exists Zoster (shingles) series for age 50+ Completed 10/23/2018, 08/16/2018, 08/23/2007 DEXA/DXA scan for age 65+ Completed 2020, 12/12/2017, 10/23/2014, Additional history exists Tdap Completed 10/29/2021, 12/15/2010 Pneumococcal series for age 50+ Completed 04/17/2023, 08/26/2014, 07/18/2006 RSV vaccine for adults or Completed 05/02/2023 Influenza Vaccine Completed 03/26/2024, , 03/07/2022, Additional history exists Medical Devices Implanted Type Area Tool Grinder Operator Device Identifier Shelf Expiration Date Model / Serial / Lot [id number] - [id number] Implanted:Qty: 1 on 02/19/2018 by Cortes Tucker DPM at [facility] Right: Foot [employer] AR-8944CR-P / / Description:Low profile MTP plate, contoured, right, titanium [facility]-8933-18 - [id number] Implanted:Qty: 2 on 02/19/2018 by Cortes Tucker DPM at [facility] Right: Foot [employer] NH-8933-18 / / Description:3mm low profile screw,cortical, titanium [id number] - [id number] Implanted:Qty: 1 on 02/19/2018 by Cortes Tucker DPM at [facility] Right: [employer] NH-8933V-14 / / Description:3.0mm JAH screw, titanium [id number]-36 - [id number] Implanted:Qty: 1 on 02/19/2018 by Cortes Tucker DPM at [facility] Right: Foot [employer] NH-8933V-16 / / Description:3.0mm JAH screw, titanium [id number]-01 - [id number] Implanted:Qty: 2 on 02/19/2018 by Cortes Tucker DPM at [facility] Right: Foot [employer] NH-8933V-18 / / Description:3.0mm JAH screw, titanium [id number] - [id number] Implanted:Qty: 1 on 02/19/2018 by Cortes Tucker DPM at [facility] Right: Foot [employer] AR-8730-14P T / / Description:screw Aug-4157-20 - [id number] Implanted:Qty: 1 on 02/19/2018 by Cortes Tucker DPM at [facility] Right: Foot [employer] AR-4157-20 / / [id number] Description:Retrofusion scre w Explanted Type Area Tool Grinder Operator Device Identifier Shelf Expiration Date Model / Serial / Lot Aug-8933-22 - [id number] Implanted:Qty: 1 Explanted:Qty: 1 on 02/19/2018 by Cortes Tucker DPM at [facility] Right: Foot [employer] [id number] / / Description:3mm low profile screw,cortical,titanium Procedures Procedure Name Priority Date/Time Associated Diagnosis Comments OCCULT BLOOD IFOBT STOOL Routine 07/19/2024 12:00 PM BIN CLEANER Screening for colon cancer CT CHEST WO Routine 06/27/2024 10:37 AM BIN CLEANER Pulmonary nodule ECHO TTE COMPLETE WO CONTRAST Routine 06/25/2024 11:57 AM BIN CLEANER PSVT (paroxysmal supraventricular tachycardia) (HC) Palpitations Paroxysmal atrial fibrillation (HC) XR MAMMO HOLDEN BILAT SCREEN Routine 06/20/2024 10:34 AM BIN CLEANER Visit for screening mammogram VITAMIN D 25 (DEFICIENCY) Routine 06/20/2024 9:57 AM BIN CLEANER Vitamin D deficiency BASIC METABOLIC PANEL Routine 06/20/2024 9:57 AM BIN CLEANER Benign essential HTN VITAMIN B12 Routine 06/20/2024 9:57 AM BIN CLEANER B12 deficiency XR DXA BONE DENSITY 2 SITES AXIAL Routine 04/12/2021 3:45 PM CDT Menopause from Last 3 Months or Most Recently Relevant to Health Maintenance Results * OCCULT BLOOD IFOBT STOOL (07/19/2024 12:00 PM BIN CLEANER) STOOL BLOOD ,IFOBT Negative Negative 07/29/2024 9:52 PM BIN CLEANER [facility]ORAT[facility] Stool STOOL SPECIMEN / Unknown Non-Blood / Unknown 07/19/2024 12:00 PM BIN CLEANER 07/29/2024 3:38 PM BIN CLEANER us Zachary Quijano MD LABORATORY Final [facility] [address] [place] [address], [place] * CT CHEST WO (06/27/2024 10:37 AM BIN CLEANER) Anatomical Region Laterality Modality CHEST, THORAX, HEART Computed To mography 06/27/2024 3:42 PM BIN CLEANER Narrative 06/27/2024 3:42 PM BIN CLEANER For Patients: As a result of the Cures Act, medical imaging exams and procedure reports are released immediately into your electronic medical record. You may view this report before your referring provider. If you have questions, please contact your health care provider. Indication: Pulmonary nodule Technique: Noncontrast CT chest Please note that all CT scans at this facility use dose modulation, iterative reconstruction, and/or weight-based dosing when appropriate to reduce radiation dose to as low as reasonably achievable. Comparison: CT cardiac study 09/28/2022 Findings: Stable 3.7 millimeter nodule adjacent to the right minor fissure. Additional stable 2.8 millimeter nodule right middle lobe adjacent to the heart. 2 millimeter subpleural nodule at the right lung apex. Calcified nodule within the superior segment of the right lower lobe. Additional calcified nodule within the right lower lobe, along the right lower lobe bronchovascular bundle and a cluster of calcified nodules within the right lower lobe. Other calcified granulomas are present elsewhere throughout the left lung including a cluster of granulomas within the lateral left lung. Scarring in both lung apices noted extending to the apical pleura. Mild scarring within the left lower lobe. No pleural effusion. No suspicious thyroid nodule. No adenopathy. Vascular calcifications. Degenerative changes. Curvature of the spine. Impression: Bilateral pulmonary nodules, most of which are calcified. Noncalcified nodules on the right measure up to 3.7 millimeters, unchanged compared to the prior study. Please note that all CT scans at this facility use dose modulation, iterative reconstruction, and/or weight-based dosing when appropriate to reduce radiation dose to as low as reasonably achievable. Dictated by David Chatman MD @ 06/27/2024 3:42:47 PM (Electronically Signed) Procedure Note David Chatman MD - 06/27/2024 For Patients: As a result of the Cures Act, medical imagingexams and procedure reports are released immediately into your electronicmedical record. You may view this report before your referring provider.If you have questions, please contact your health care provider. Indication: Pulmonary nodule Technique: Noncontrast CT chest Please note that all CT scans at this facility use dose modulation,iterative reconstruction, and/or weight-based dosing when appropriate toreduce radiation dose to as low as reasonably achievable. Comparison: CT cardiac study 09/28/2022 Findings: Stable 3.7 millimeter nodule adjacent to the right minor fissure.Additional stable 2.8 millimeter nodule right middle lobe adjacent to theheart. 2 millimeter subpleural nodule at the right lung apex. Calcifiednodule within the superior segment of the right lower lobe. Additionalcalcified nodule within the right lower lobe, along the right lower lobebronchovascular bundle and a cluster of calcified nodules within the rightlower lobe. Other calcified granulomas are present elsewhere throughoutthe left lung including a cluster of granulomas within the lateral leftlung. Scarring in both lung apices noted extending to the apical pleura.Mild scarring within the left lower lobe. No pleural effusion. Nosuspicious thyroid nodule. No adenopathy. Vascular calcifications.Degenerative changes. Curvature of the spine. Impression: Bilateral pulmonary nodules, most of which are calcified. Noncalcifiednodules on the right measure up to 3.7 millimeters, unchanged compared tothe prior study. Please note that all CT scans at this facility use dose modulation,iterative reconstruction, and/or weight-based dosing when appropriate toreduce radiation dose to as low as reasonably achievable. Dictated by aDvid Chatman MD @ 06/27/2024 3:42:47 PM (Electronically Signed) us Zachary Quijano MD CT Final Result * ECHO TTE COMPLETE WO CONTRAST (06/25/2024 11:57 AM BIN CLEANER) AORTIC VALVE MEAN PG 3 mmHg EJECTION FRACTION 56 % PEAK TR VELOCITY 2.4 m/s LVEDD 3.9 cm EJECTION FRACTION 55 - 60% Anatomical Region Laterality Modality Ultrasound 06/25/2024 11:1 3 AM BIN CLEANER Narrative 06/25/2024 1:16 PM BIN CLEANER ECHOCARDIOGRAM SHANTI MARIE : 1940 83 years Study Date: 06/25/2024 11:13:55 AM Gender: F BP: 135/69 mmHg Height: 157.00 cm BSA: 1.55 m Weight: 56.00 kg Tech: [id number] Referring MD: POLLY CORRIGAN Site: [facility] Reading Location: Mobile OP Patient Location: Outpatient. Procedure: 2D, Color Doppler and Spectral Doppler. Indication for study: PSVT (paroxysmal supraventricular tachycardia) (HC); Palpitations; Paroxysmal atrial fibrillation (HC) Cardiac Rhythm: Sinus bradycardia.Study quality: Good. Final Impressions: 1. Normal LV size, normal wall thickness, normal global systolic function with an estimated EF of 55 - 60%. 2. Mildly enlarged left atrium. 3. Right ventricular cavity size is normal, global systolic RV function is normal. 4. The aortic valve is normal, no stenosis and mild regurgitation. 5. The mitral valve is normal, mild mitral regurgitation. 6. Moderate (2-3+) tricuspid regurgitation. 7. The inferior vena cava is dilated, respiratory size variation less than 50%. Chamber Sizes and Function Normal left ventricular size, normal wall thickness, normal global systolic function with an estimated EF of 55 - 60%. No resting regional wall motion abnormality visualized. Left atrial size is mildly enlarged. Right ventricular cavity size is normal, global systolic RV function is normal. The right atrium is moderately enlarged. Right atrial volume index is 51 ml/m . Right atrial area is 21 cm . The pulmonary artery is of normal size and origin. The sinus of Valsalva is normal sized. The ascending aorta is normal sized. Valves, RV Pressures and Diastolic Function The aortic valve is normal in structure, no stenosis and mild regurgitation. The mitral valve is normal in structure, mild mitral regurgitation. Mitral annular calcification is present. Indeterminate pattern of LV diastolic filling. The tricuspid valve is normal in structure. Tricuspid regurgitation is moderate. The tricuspid regurgitant velocity is 2.4 m/s, the estimated right ventricular systolic pressure is 23 mmHg plus right atrial pressure. The pulmonic valve is normal. Trace pulmonary regurgitation. Masses, Effusion, Shunts There is no pericardial effusion. The inferior vena cava is dilated, respiratory size variation less than 50%. No left to right shunting was detected by limited color flow Doppler interrogation of the interatrial septum. MEASUREMENTS AND CALCULATIONS 2-D Measurements and LV Function: LVID (d) 3.9 cm LV FS% (2D) 28 % LVID (s) 2.8 cm LVOT diameter 2.0 cm IVS (d) 0.9 cm HR 58 bpm LVPW (d) 0.8 cm LA Vol index 40 ml/m2 Ao Sinus 3.8 cm RA Vol index 51 ml/m2 Asc Ao 3.8 cm RA area 21 cm RV Max 4C (d) 4.8 cm Diastology: Mitral Tissue Doppler E Peak 0.7 m/s e', Septum 0.08 m/s A Peak 0.6 m/s e', Lateral 0.10 m/s E/A 1.3 E/e' Average 8.09 DT 153 msec Aortic Valve: Vmax 1.2 m/s OBI (V) 2.33 cm VTI 0.29 m OBI (I) 2.28 cm LVOT V max 0.9 m/s Max PG 5 mmHg LVOT VTI 0.22 m Mean PG 3 mmHg SV 65 ml Dim Index 0.76 SV index 42 ml/m CO 3.8 l/min CI 2.4 l/min/m Mitral Valve: MVA 5.0 cm MV P 1/2 44 msec Tricuspid Valve and estimated PA pressures: TR Vmax 2.4 m/s TR maxG 23 mmHg Pulmonic Valve: PIEDV 0.9 m/s . This study was interpreted by an [facility] accredited facility. Final Procedure Note Jeff Gonsales MD - 06/25/2024 ECHOCARDIOGRAM SHANTI MARIE : 1940 83 years Study Date: 06/25/2024 11:13:55 AM Gender: F BP: 135/69 mmHg Height: 157.00 cm BSA: 1.55 m Weight: 56.00 kg Tech: [id number] Referring MD: POLLY CORRIGAN Site: [facility] Reading Location: Mobile OP Patient Location: Outpatient. Procedure: 2D, Color Doppler and Spectral Doppler. Indication for study: PSVT (paroxysmal supraventricular tachycardia) (HC);Palpitations; Paroxysmal atrial fibrillation (HC) Cardiac Rhythm: Sinus bradycardia.Study quality: Good. Final Impressions: 1. Normal LV size, normal wall thickness, normal global systolic functionwith an estimated EF of 55 - 60%. 2. Mildly enlarged left atrium. 3. Right ventricular cavity size is normal, global systolic RV functionis normal. 4. The aortic valve is normal, no stenosis and mild regurgitation. 5. The mitral valve is normal, mild mitral regurgitation. 6. Moderate (2-3+) tricuspid regurgitation. 7. The inferior vena cava is dilated, respiratory size variation lessthan 50%. Chamber Sizes and Function Normal left ventricular size, normal wall thickness, normal globalsystolic function with an estimated EF of 55 - 60%. No resting regionalwall motion abnormality visualized. Left atrial size is mildly enlarged.Right ventricular cavity size is normal, global systolic RV function isnormal. The right atrium is moderately enlarged. Right atrial volume indexis 51 ml/m . Right atrial area is 21 cm . The pulmonary artery is ofnormal size and origin. The sinus of Valsalva is normal sized. Theascending aorta is normal sized. Valves, RV Pressures and Diastolic Function The aortic valve is normal in structure, no stenosis and mildregurgitation. The mitral valve is normal in structure, mild mitralregurgitation. Mitral annular calcification is present. Indeterminatepattern of LV diastolic filling. The tricuspid valve is normal instructure. Tricuspid regurgitation is moderate. The tricuspid regurgitantvelocity is 2.4 m/s, the estimated right ventricular systolic pressure is23 mmHg plus right atrial pressure. The pulmonic valve is normal. Tracepulmonary regurgitation. Masses, Effusion, Shunts There is no pericardial effusion. The inferior vena cava is dilated,respiratory size variation less than 50%. No left to right shunting wasdetected by limited color flow Doppler interrogation of the interatrialseptum. MEASUREMENTS AND CALCULATIONS 2-D Measurements and LV Function: LVID (d) 3.9 cm LV FS% (2D) 28 % LVID (s) 2.8 cm LVOT diameter 2.0 cm IVS (d) 0.9 cm HR 58 bpm LVPW (d) 0.8 cm LA Vol index 40 ml/m2 Ao Sinus 3.8 cm RA Vol index 51 ml/m2 Asc Ao 3.8 cm RA area 21 cm RV Max 4C (d) 4.8 cm Diastology: Mitral Tissue Doppler E Peak 0.7 m/s e', Septum 0.08 m/s A Peak 0.6 m/s e', Lateral 0.10 m/s E/A 1.3 E/e' Average 8.09 DT 153 msec Aortic Valve: Vmax 1.2 m/s OBI (V) 2.33 cm VTI 0.29 m OBI (I) 2.28 cm LVOT V max 0.9 m/s Max PG 5 mmHg LVOT VTI 0.22 m Mean PG 3 mmHg SV 65 ml Dim Index 0.76 SV index 42 ml/m CO 3.8 l/min CI 2.4 l/min/m Mitral Valve: MVA 5.0 cm MV P 1/2 44 msec Tricuspid Valve and estimated PA pressures: TR Vmax 2.4 m/s TR maxG 23 mmHg Pulmonic Valve: PIEDV 0.9 m/s . This study was interpreted by an [facility] accredited facility. Final us Polly Corrigan MD ECHO ORD Final R esult * XR MAMMO HOLDEN BILAT SCREEN (06/20/2024 10:34 AM BIN CLEANER) Anatomical Region Laterality Modality BREASTS, Breast Left, Breast Right Bilateral Mammography Impressions 06/20/2024 2:05 PM BIN CLEANER There is no radiographic evidence for malignancy. Recommend annual mammograms. MAMMOGRAM ASSESSMENT: ACR 1 Negative PATIENTS: You will also receive a letter with your examination results in an easy to read format. If you have questions about your results, please contact your referring provider. Narrative 06/20/2024 2:05 PM BIN CLEANER For Patients: As a result of the 21st Century Cures Act, medical imaging exams and procedure reports are released immediately into your electronic medical record. You may view this report before your referring provider. If you have questions, please contact your health care provider. XR MAMMO HOLDEN BILAT SCREEN [[id number]] CLINICAL HISTORY: This is an asymptomatic 83 y.o. patient. INDICATION FOR EXAM: Mammogram Screening. TECHNIQUE: CC & MLO views were obtained. This study was evaluated with the assistance of Computer-Aided Detection. Breast Tomosynthesis was used in interpretation. COMPARISON FILM: Yes 06/13/23 [facility] 04/28/22 [facility] FINDINGS: The breasts are heterogeneously dense, which may obscure small masses. There are no dominant masses, suspicious micro calcifications or areas of architectural distortion. Zachary Quijano MD MAMMO Final Result * VITAMIN D 25 (DEFICIENCY) (06/20/2024 9:57 AM BIN CLEANER) VITAMIN D,25-OH,TOTAL,IA 52 30 - 100 ng/mL [facility] Comment: Vitamin D Status 25-OH Vitamin D: Deficiency: <20 ng/mL Insufficiency: 20 - 29 ng/mL Optimal: > or = 30 ng/mL For 25-OH Vitamin D testing on patients on D2-supplementation and patients for whom quantitation of D2 and D3 fractions is required, the QuestAssureD(TM) 25-OH VIT D, (D2,D3), LC/MS/MS is recommended: order code [id number] (patients >2yrs). See Note 1 Note 1 For additional information, please refer to http://education.[employer]/faq/XPI066 (This link is being provided for informational/ educational purposes only.) Blood BLOOD SPECIMEN / Unknown 06/20/2024 9:57 AM BIN CLEANER 06/20/2024 9:58 AM BIN CLEANER Zachary Quijano MD SEND OUTS Final Result [facility] [address] [place] [address], [facility] [address] [place] [address] * VITAMIN B12 (06/20/2024 9:57 AM BIN CLEANER) VITAMIN B12 475 200 - 1,100 pg/mL [facility] Blood BLOOD SPECIMEN / Unknown 06/20/2024 9:57 AM BIN CLEANER 06/20/2024 9:58 AM BIN CLEANER Zachary Quijano MD CHEMISTRY Final Result Performing Organization Address City/[facility]/ZIP Co de Phone Number [facility] [address] [place] [address], [place] [phone] [facility] [address] [place] [address] * (ABNORMAL) BASIC METABOLIC PANEL (06/20/2024 9:57 AM BIN CLEANER) [facility] GLUCOSE 86 65 - 99 mg/dL [facility] Comment: Fasting reference interval UREA NITROGEN (BUN) 16 7 - 25 mg/dL [facility] CREATININE 0.97(H) 0.60 - 0.95 mg/dL [facility] EGFR 58(L) > OR = 60 mL/min/1.7 3m2 [facility] BUN/CREATININE RATIO 16 6 - 22 (calc) [facility] SODIUM 140 135 - 146 mmol/L [facility] POTASSIUM 4.0 3.5 - 5.3 mmol/L [facility] CHLORIDE 102 98 - 110 mmol/L [facility] CARBON DIOXIDE 33(H) 20 - 32 mmol/L [facility] ELECTROLYTE BALANCE 5(L) 7 - 17 mmol/L (calc) [facility] CALCIUM 9.6 8.6 - 10.4 mg/dL [facility] Blood BLOOD SPECIMEN / Unknown 06/20/2024 9:57 AM BIN CLEANER 06/20/2024 9:58 AM BIN CLEANER us Zachary Quijano MD CHEMISTRY Final Result Performing Organization Address [facility]/ZIP Co de Phone Number [facility] [address] [place] [address], [place] [phone] [facility] [address] [place] [address] * (ABNORMAL) XR DXA BONE DENSITY 2 SITES AXIAL (04/12/2021 3:45 PM CDT) Anatomical Region Laterality Modality Spine, HIPS, HIPL, HIPR Other Impressions 04/18/2021 2:30 PM BIN CLEANER Osteopenia. RECOMMENDATIONS: The National Osteoporosis Foundation recommends pharmacologic treatment for patients with T-scores of -2.5 or less, patients with prior history of fragility fractures, or patients with 10-year probability of greater than 3% at hips or greater than 20% of suffering major osteoporotic fractures. Recommend continued optimization of calcium and vitamin D intake through dietary means and/or supplementation and regular exercise. Consider pharmacologic therapy for osteopenia with increased fracture risk. Follow-up bone density reading in 2 years if therapy initiated to assess therapeutic efficacy. Hannah Kaur PA-C Narrative 04/18/2021 2:30 PM BIN CLEANER For Patients: Results are automatically released to your [facility]) account once available, in compliance with federal regulations. This means that you may see your results before your provider has had a chance to review them. Please allow 2-3 business days for your provider to comment on the results. XR DXA Bone Mineral Density (BMD) EXAM LOCATION: [facility] [address] [facility] [address] PATIENT NAME: Shanti Marie DATE OF : 1940 EXAM DATE: 04/12/2021 REQUESTING PROVIDER: Alejandrina Kellogg MD GENDER AT : female HEIGHT: 5' 2.64 (03/31/2021) WEIGHT: 135 lb 12.8 oz (03/31/2021) MENOPAUSAL STATUS: Postmenopausal RACE/ETHNICITY: White RISK FACTORS: Family History of Osteoporosis, Height Loss (2 inches or more) and White Race CURRENT MEDICATION FOR BONE LOSS: NONE INDICATION: Follow-up of existing osteopenia and Post-Menopause COMPARISON DATE(S): 2017 DXA scans are compared to prior studies for a patient only when the two (or more) studies were performed on the same scanner. It is not possible to compare data generated on one scanner to data from another because there are not standards in DXA equipment. This applies even if the two scanners are made by the same commander police [employer]. PROCEDURE: Dual-energy x-ray absorptiometry performed with routine technique. Reporting is completed in the form of a T-score. The T-score represents the standard deviation from peak bone mass based on young healthy adult. A Z-score is used for diagnosis in premenopausal women, and for men under the age of 50. FINDINGS: RESULT LUMBAR SPINE L1 - L3 BMD: 1.000 g/cm2 T-Score: - 1.4 Z-Score: + 0.6 Change from prior in 2018: Increase 0.0%. RESULTS FEMUR Left femoral neck BMD: 0.766 g/cm2 T-Score: - 2.0 Z-Score: + 0.3 Change from prior in 2018: Increase 2.1%. Right femoral neck BMD: 0.747 g/cm2 T-Score: - 2.1 Z-Score: + 0.2 Change from prior in 2018: Decrease 4.5%. Left hip BMD: 0.896 g/cm2 T-Score: - 0.9 Z-Score: + 1.3 Change from prior in 2018: Increase 2.1%. Right hip BMD: 0.829 g/cm2 T-Score: - 1.4 Z-Score: + 0.8 Change from prior in 2018: Decrease 3.8%. WHO criteria: Normal: T-score at or above -1 SD Osteopenia: T-score between -1.1 and -2.4 SD Osteoporosis: T-score at or below -2.5 SD FRAX RISK CALCULATION (USED FOR OSTEOPENIA ONLY): 10-year probability of major osteoporotic fracture: 16.3%. 10-year probability of hip fracture: 5.3%. 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 Healthcare Directive 03/20/2008 HEALTH CARE DIRECTIVE, [facility], 03/20/07 * Full Code (Latest Code Status on File) Date Activated Date Inactivated Comments 02/19/2018 3:41 PM 02/19/2018 7:15 PM Question Answer Comments Code Status Discussion: Discussed * Full Code Date Activated Date Inactivated Comments 02/19/2018 10:50 AM 02/19/2018 3:41 PM Question Answer Comments Code Status Discussion: Discussed Care Teams Clinical Data Programmer Relationship Specialty Start Date End Date Zachary Quijano MD [address] [place] [address] PCP - General Family Practice 04/17/23 Mike Pichardo MD Cardiology Cardiovascular Disease 01/13/11 Annette Herrera [place] [address] Audiology 11/30/09
[2024-08-30 19:31] VITALS: BP 113/63; PULSE 91; RESP 18; TEMP 36.6; O2SAT 98; BMI 22.3
--- NOTE | 2024-08-30 19:54 | CRLHL7_ITS ---
For Patients: As a result of the Century Cures Act, medical imaging exams and procedure reports are released immediately into your electronic medical record. You may view this report before your referring provider. If you have questions, please contact your health care provider. INDICATION: Leg pain and swelling. TECHNIQUE: Ultrasound venous duplex lower left extremity. Compression venous exam was performed using mast-scale, color Doppler, and spectral Doppler analysis. COMPARISON: None. FINDINGS: Deep veins: Sonographic imaging demonstrates the left common femoral, deep femoral, superficial femoral, popliteal, posterior tibial, peroneal and the contralateral right common femoral veins to be fully compressible with normal color Doppler blood flow. Superficial veins: Greater saphenous vein is fully compressible. Large 17.6 x 2.0 x 5.7 cm complex hypoechoic fluid collection extending from the popliteal fossa to the mid medial calf. No internal vascular flow or peripheral hyperemia. IMPRESSION: 1. No deep venous thrombosis in the evaluated veins of the left lower extremity. 2. Large 17.6 x 2.0 x 5.7 cm complex hypoechoic fluid collection extending from the popliteal fossa to the mid medial calf, may represent a complex popliteal cyst (such as a popliteal cyst containing hemorrhage) or an evolving hematoma. Dictated by Juwan Gray MD @ 08/30/2024 9:23:17 PM (Electronically Signed)
--- NOTE | 2024-08-30 19:55 | ED.GENADULT ---
HPI - General Adult General Date Seen: 08/30/24 Chief complaint: Lower Extremity Swelling Stated complaint: Swollen L leg Time Seen by Provider: 08/30/24 19:34 History of Present Illness HPI narrative: Patient is an 84-year-old woman who presents for evaluation of pain swelling in her left leg. She notes that several days ago she was doing something where she was kneeling, and she developed pain behind her left knee. Since then she has developed swelling in the leg and pain in the calf. There has been no redness or warmth. She notes she has had problems the past couple weeks with feeling lightheaded and dizzy, nauseated, she has a history of AFib and apparently is seeing a attending ambulatory care about the symptoms. These are not new. She is anticoagulated for her atrial fibrillation, had previously been on Pradaxa but was switched recently to Eliquis. She reports that she takes this as prescribed. She has not had pleuritic chest pain or significant shortness of breath. She has no history of DVT or PE. She does not smoke. Related Data Home Medications ?Medication ?Instructions ?Recorded ?Confirmed alendronate 70 mg tablet 70 mg PO 08/29/22 08/29/22 dabigatran etexilate 150 mg capsule mg PO 08/29/22 08/29/22 flecainide 150 mg tablet 150 mg PO DAILY 08/29/22 08/29/22 hydrochlorothiazide 12.5 mg capsule 12.5 mg PO DAILY 08/29/22 08/29/22 metoprolol succinate 25 mg 25 mg PO DAILY 08/29/22 08/29/22 tablet,extended release 24 hr Previous Rx's ?Medication ?Instructions ?Recorded nirmatrelvir 300 mg (150 mg See Rx Instructions PO .COMPLEX 08/29/22 x2)-ritonavir 100 mg tablet,dose #30 ea pack (Paxlovid) hydrocodone 5 mg-acetaminophen 325 1 tab PO Q4-6H PRN pain #10 tabs 07/15/23 mg tablet Allergies Allergy/AdvReac Type Severity Reaction Status Date / Time morphine AdvReac Verified 08/30/24 19:38 Review of Systems Status of ROS: Reports: 6 or more systems reviewed and unremarkable except as noted in History and below [facility] Medical History Atrial fibrillation ?I48.91 - Unspecified atrial fibrillation (ICD-10) COVID ?U07.1 - COVID-19 (ICD-10) Social History Smoking Status: Never smoker Do you use any of these nicotine containing products: None Second hand tobacco smoke exposure: No How often do you have a drink containing alcohol: never How often do you have six or more drinks on one occasion: Never AUDIT-C Alcohol total score: 0 Non-prescribed substance use: denies use service: No Exam Narrative: Exam Narrative: Vital signs reviewed In general, alert, nontoxic elderly woman. She looks younger than her stated age. Breathing easily. Head: Normocephalic, atraumatic. Eyes: Sclera clear. Pupils equal and reactive. ENT: Mucous membranes moist. Neck: Supple without adenopathy. Heart: Mildly irregular, controlled rate. Lungs: Clear. No increased work of breathing, crackles or wheezes. Abdomen: Soft, nontender to palpation. Extremities: She has definite asymmetry, left leg is larger than the right. She has tenderness behind the knee as well as throughout the calf. No erythema or warmth. Distal CMS is intact. Neurologic: Alert, conversant. Speech fluent, face symmetric. Moves all extremities equally. Skin: Warm, dry well perfused. Affect: Normal. Const: Vital Signs, click to edit/add: Vital Signs - 24 hr 08/30/24 19:31 Temperature 97.8 F Pulse Rate [Right Pulse Oximeter] 91 Respiratory Rate 18 Blood Pressure [Ri ght Upper Arm] 113/63 Pulse Oximetry 98 Oxygen Delivery Me thod Room Air Course Course ED Course: Diagnostic considerations would include lau cyst and DVT, I doubt this is cellulitis given the absence of any inflammatory findings. She has no edema whatsoever in the right leg, so this seems unlikely to be related to overall fluid overload. Ultrasound reviewed by Radiology and is read as negative for DVT, she has a large almost 18 x 2 x 6 cm complex hypoechoic fluid collection from the popliteal fossa lid to the mid medial calf. This may represent a complex popliteal cyst or an evolving hematoma. She is anticoagulated so certainly hematoma would be possible though she has not had any specific trauma. Given her history I favor more that this is a complex Lua cyst. Regardless, for the short term I have suggested that she minimize significant activity over the next couple of days, elevate is able, ice, Tylenol as needed. Follow-up with primary care early next week for recheck. Discussed reasons to return such as severe or worsening pain, fevers, chills, redness or other signs of infection. Vital Signs Vital signs: Initial Vital Signs Temperature 97.8 F 08/30/24 19:31 Temperature Source Temporal Artery Scan 08/30/24 19:31 Pulse Rate 91 08/30/24 19:31 Respiratory Rate 18 08/30/24 19:31 Blood Pressure 113/63 08/30/24 19:31 Blood Pressure Mean 79 08/30/24 19:31 Blood Pressure Position Sitting 08/30/24 19:31 Pulse Oximetry 98 08/30/24 19:31 Oxygen Delivery Method Room Air 08/30/24 19:31 Vital Signs Temperature 97.8 F 08/30/24 19:31 Pulse Rate 91 08/30/24 19:31 Respiratory Rate 18 08/30/24 19:31 Blood Pressure 113/63 08/30/24 19:31 Pulse Oximetry 98 08/30/24 19:31 Oxygen Delivery Method Room Air 08/30/24 19:31 Temperature 97.8 F 08/30/24 19:31 Pulse Rate 91 08/30/24 19:31 Respiratory Rate 18 08/30/24 19:31 Blood Pressure 113/63 08/30/24 19:31 Pulse Oximetry 98 08/30/24 19:31 Oxygen Delivery Method Room Air 08/30/24 19:31 Medical Decision Making Imaging Data Venous US: Attestation: I have reviewed the pertinent imaging results. Radiologist's impression: Patient: KATHARINE CHUNG Facility: [facility] Site . Site : 1940 Study: US-Extremity Left LEV-08/30/2024 8:47:41 PM Ordering Physician: Layla Smith Final Report: INDICATION: Leg pain and swelling. TECHNIQUE: Ultrasound venous duplex lower left extremity. Compression venous exam was performed using mast-scale, color Doppler, and spectral Doppler analysis. COMPARISON: None. FINDINGS: Deep veins: Sonographic imaging demonstrates the left common femoral, deep femoral, superficial femoral, popliteal, posterior tibial, peroneal and the contralateral right common femoral veins to be fully compressible with normal color Doppler blood flow. Superficial veins: Greater saphenous vein is fully compressible. Large 17.6 x 2.0 x 5.7 cm complex hypoechoic fluid collection extending from the popliteal fossa to the mid medial calf. No internal vascular flow or peripheral hyperemia. IMPRESSION: 1. No deep venous thrombosis in the evaluated veins of the left lower extremity. 2. Large 17.6 x 2.0 x 5.7 cm complex hypoechoic fluid collection extending from the popliteal fossa to the mid medial calf, may represent a complex popliteal cyst (such as a popliteal cyst containing hemorrhage) or an evolving hematoma. Discharge Plan Discharge Clinical Impression: Pain of left calf Patient Disposition: Home, Self-Care Condition: Stable Additional Instructions: Your ultrasound does not show any evidence of blood clots in the veins. You have a fluid collection noted in the calf which is large, this may represent a complex Lau's cyst as we discussed, with some bleeding into it, or could represent a hematoma, which is a collection of blood. In either case, for now I would recommend elevation as much as able, ice, and relative rest. I would recommend that you follow-up with your primary doctor early next week for recheck. If in the meantime you have worsening or severe pain, developed redness, fevers, chills, etcetera, return to the emergency department at any time. Prescriptions: No Action metoprolol succinate 25 mg tablet extended release 24 hr 25 mg PO DAILY hydrochlorothiazide 12.5 mg capsule 12.5 mg PO DAILY dabigatran etexilate 150 mg capsule PO flecainide 150 mg tablet 150 mg PO DAILY alendronate 70 mg tablet 70 mg PO Paxlovid 300 mg (150 mg x 2)-100 mg tablets,dose pack See Rx Instructions PO .COMPLEX Qty: 30 0RF Rx Instructions: take TWO 150 mg tablets of nirmatrelvir with ONE 100 mg tablet of ritonavir twice daily for 5 days PO hydrocodone-acetaminophen 5-325 mg tablet 1 tab PO Q4-6H PRN (Reason: pain) Qty: 10 0RF Follow Up/Referrals: Zachary Quijano MD [Primary Care Provider] - Stand Alone Forms: [facility] Info Instructions
--- OUTSIDE RECORDS SUMMARY | 2024-08-30 20:03 | XMS_ITS | Clinical Summary ---
Author Organization [employer] [facility] Address [address] [place] [address] Care Team Providers Care Roll Builder Name Role Phone Mike Pichardo MD Unavailable Gala vailaAnnette Perales Unavailable [phone] Zachary Quijano MD Primary Care Provider [...] Description 08/26/2024 2:30 PM CDT Office Visit [facility] [address] [place] [address] Zachary Quijano MD Shoulder Pain/problem (Right shoulder pain, started 08/17/2024, no known injury) 08/25/2024 Travel 07/29/2024 Orders Only [facility] [address] [place] [address] Zachary Quijano MD Lab 07/29/2024 Orders Only [facility] [address] [place] [address] Zachary Quijano MD <No scans attached> 07/22/2024 Refill [facility] [address] [place] [address] Polly Corrigan MD Refill Request (Eliquis) 07/20/2024 Refill [facility] [address] [facility] [place] [address] Zachary Quijano MD Refill Request (Alendronate) 06/27/2024 10:30 AM BEAD INSPECTOR Ancillary Procedure [facility] [address] [place] [address] 06/27/2024 Travel 06/25/2024 11:00 AM BEAD INSPECTOR Ancillary Procedure [facility] [address] [place] [address] 06/25/2024 Travel 06/22/2024 Travel 06/20/2024 10:40 AM BEAD INSPECTOR Ancillary Procedure [facility] [address] [place] [address] 06/20/2024 9:20 AM BEAD INSPECTOR Office Visit [facility] [address] [place] [address] Zachary Quijano MD Medicare ANNUAL (subsequent) Visit (83 year old) 06/20/2024 Travel 06/16/2024 Travel from Last 3 Months Immunizations Immunization Administration Dates Next Due Amb Influenza, Inact (High-d ose Quadrivalent) (Flu Clinic Only) 03/11/2020 COVID-19 vaccine (V[employer] Dragon NTCatchMe! 30mcg/0.3mL) PFROSALIE 08/18/2020,07/28/2020 HepA-HepB (Twinrix) 08/09/2002 Hepatitis [...] on file Legal Sex Female 5:24 AM BEAD INSPECTOR Gender Identity Not on file Sexual Orientation [...] Body Mass Index 22.9 06/20/2024 9:17 AM BEAD INSPECTOR Plan of Treatment Upcoming Encounters Date Type Department Care Team (Late st Contact Info) Description 09/10/2024 11:00 AM CDT Office Visit [facility] [address] [place] [address] Polly Corrigan MD [address] [place] [address] Health Maintenance Due Date Last Done Comments [...] history exists Medical Devices Implanted Type Area Steel Placer Device Identifier Shelf Expiration Date Model / Serial / Lot [id number] - [id number] Implanted:Qty: 1 on 02/19/2018 by Cortes Tucker DPM at [facility] Right: Foot [employer] AR-8944CR-P / / Description:Low profile MTP plate, contoured, right, titanium [facility]-8933-18 - [id number] Implanted:Qty: 2 on 02/19/2018 by Cortes Tucker DPM at [facility] Right: Foot [employer] PA-8933-18 / / Description:3mm low profile screw,cortical, titanium [id number]-48 - [id number] Implanted:Qty: 1 on 02/19/2018 by Cortes Tucker DPM at [facility] Right: [employer] PA-8933V-14 / / Description:3.0mm JAH screw, titanium [id number]-14 - [id number] Implanted:Qty: 1 on 02/19/2018 by Cortes Tucker DPM at [facility] Right: [employer] PA-8933V-16 / / Description:3.0mm JAH screw, titanium Pqa-7247d-02 - [id number] Implanted:Qty: 2 on 02/19/2018 by Cortes Tucker DPM at [facility] Right: [employer] PA-8933V-18 / / Description:3.0mm JAH screw, titanium Wts-5532-87to - [id number] Implanted:Qty: 1 on 02/19/2018 by Cortes Tucker DPM at [facility] Right: [employer] AR-8730-14P T / / Description:screw Aug-4157-20 - [id number] Implanted:Qty: 1 on 02/19/2018 by Cortes Tucker DPM at [facility] Right: Foot [employer] AR-4157-20 / / [id number] Description:Retrofusion scre w Explanted Type Area Steel Placer Device Identifier Shelf Expiration Date Model / Serial / Lot Aug-8933-22 - [id number] Implanted:Qty: 1 Explanted:Qty: 1 on 02/19/2018 by Cortes Tucker DPM at [facility] Right: Foot [employer] [facility]8933-22 / / Description:3mm low profile screw,cortical,titanium Procedures Procedure Name Priority Date/Time Associated Diagnosis Comments OCCULT BLOOD IFOBT STOOL Routine 07/19/2024 12:00 PM BEAD INSPECTOR Screening for colon cancer CT CHEST WO Routine 06/27/2024 10:37 AM BEAD INSPECTOR Pulmonary nodule ECHO TTE COMPLETE WO CONTRAST Routine 06/25/2024 11:57 AM BEAD INSPECTOR PSVT (paroxysmal supraventricular tachycardia) (HC) Palpitations Paroxysmal atrial fibrillation (HC) XR MAMMO HOLDEN BILAT SCREEN Routine 06/20/2024 10:34 AM BEAD INSPECTOR Visit for screening mammogram VITAMIN D 25 (DEFICIENCY) Routine 06/20/2024 9:57 AM BEAD INSPECTOR Vitamin D deficiency BASIC METABOLIC PANEL Routine 06/20/2024 9:57 AM BEAD INSPECTOR Benign essential HTN VITAMIN B12 Routine 06/20/2024 9:57 AM BEAD INSPECTOR B12 deficiency XR DXA BONE DENSITY 2 SITES AXIAL Routine 04/12/2021 3:45 PM CDT Menopause from Last 3 Months or Most Recently Relevant to Health Maintenance Results * OCCULT BLOOD IFOBT STOOL (07/19/2024 12:00 PM BEAD INSPECTOR) STOOL BLOOD ,IFOBT Negative Negative 07/29/2024 9:52 PM BEAD INSPECTOR [facility] Stool STOOL SPECIMEN / Unknown Non-Blood / Unknown 07/19/2024 12:00 PM BEAD INSPECTOR 07/29/2024 3:38 PM BEAD INSPECTOR us Zachary Quijano MD LABORATORY Final Result [facility] [address] [place] [address], [place] * CT CHEST WO (06/27/2024 10:37 AM BEAD INSPECTOR) Anatomical Region Laterality Modality CHEST, THORAX, HEART Computed To mography 06/27/2024 3:42 PM BEAD INSPECTOR Narrative 06/27/2024 3:42 PM BEAD INSPECTOR For Patients: As a result of the [...] TTE COMPLETE WO CONTRAST (06/25/2024 11:57 AM BEAD INSPECTOR) AORTIC VALVE MEAN PG 3 mmHg EJECTION FRACTION 56 % PEAK TR VELOCITY 2.4 m/s LVEDD 3.9 cm EJECTION FRACTION 55 - 60% Anatomical Region Laterality Modality Ultrasound 06/25/2024 11:1 3 AM BEAD INSPECTOR Narrative 06/25/2024 1:16 PM BEAD INSPECTOR ECHOCARDIOGRAM SHANTI MARIE : 1940 83 years Study Date: 06/25/2024 11:13:55 AM Gender: F BP: 135/69 mmHg Height: 157.00 cm BSA: 1.55 m Weight: 56.00 kg Tech: [facility] Referring MD: POLLY CORRIGAN Site: [facility] Reading Location: Mobile OP Patient Location: Outpatient. [...] . This study was interpreted by an [facility] accredited facility. Final Procedure Note Jeff Gonsales MD - 06/25/2024 ECHOCARDIOGRAM SHANTI MARIE : 1940 83 years Study Date: 06/25/2024 11:13:55 AM Gender: F BP: 135/69 mmHg Height: 157.00 cm BSA: 1.55 m Weight: 56.00 kg Tech: YOANA Referring MD: POLLY CORRIGAN Site: [facility] Reading Location: Mobile OP Patient Location: Outpatient. [...] . This study was interpreted by an [facility] accredited facility. Final us Polly Corrigan MD ECHO ORD Final R esult * XR MAMMO HOLDEN BILAT SCREEN (06/20/2024 10:34 AM BEAD INSPECTOR) Anatomical Region Laterality Modality BREASTS, Breast Left, Breast Right Bilateral Mammography Impressions 06/20/2024 2:05 PM BEAD INSPECTOR There is no radiographic evidence for malignancy. Recommend annual mammograms. MAMMOGRAM ASSESSMENT: ACR 1 Negative PATIENTS: You will also receive a letter with your examination results in an easy to read format. If you have questions about your results, please contact your referring provider. Narrative 06/20/2024 2:05 PM BEAD INSPECTOR For Patients: As a result of the 21st Century Cures Act, medical imaging exams and procedure reports are released immediately into your electronic medical record. You may view this report before your referring provider. If you have questions, please contact your health care provider. XR MAMMO HOLDEN BILAT SCREEN [[id number]] CLINICAL HISTORY: This is an asymptomatic 83 y.o. patient. INDICATION FOR EXAM: Mammogram Screening. TECHNIQUE: CC & MLO views were obtained. This study was evaluated with the assistance of Computer-Aided Detection. Breast Tomosynthesis was used in interpretation. COMPARISON FILM: Yes 06/13/23 [facility] 04/28/22 [facility] FINDINGS: The breasts are heterogeneously dense, which may obscure small masses. There are no dominant masses, suspicious micro calcifications or areas of architectural distortion. Zachary Quijano MD MAMMO Final Result * VITAMIN D 25 (DEFICIENCY) (06/20/2024 9:57 AM BEAD INSPECTOR) VITAMIN D,25-OH,TOTAL,IA 52 30 - 100 ng/mL [facility] Comment: Vitamin D Status 25-OH Vitamin D: Deficiency: <20 ng/mL Insufficiency: 20 - 29 ng/mL Optimal: > or = 30 ng/mL For 25-OH Vitamin D testing on patients on D2-supplementation and patients for whom quantitation of D2 and D3 fractions is required, the QuestAssureD(TM) 25-OH VIT D, (D2,D3), LC/MS/MS is recommended: order code 03645 (patients >2yrs). See Note 1 Note 1 For additional information, please refer to http://education.[employer]/faq/IHX776 (This link is being provided for informational/ educational purposes only.) Blood BLOOD SPECIMEN / Unknown 06/20/2024 9:57 AM BEAD INSPECTOR 06/20/2024 9:58 AM BEAD INSPECTOR Zachary Quijano MD SEND OUTS Final Result [facility] [place] [facility] [address] [place] [address], [facility] [address] [place] [address] * VITAMIN B12 (06/20/2024 9:57 AM BEAD INSPECTOR) VITAMIN B12 475 200 - 1,100 pg/mL [facility] Blood BLOOD SPECIMEN / Unknown 06/20/2024 9:57 AM BEAD INSPECTOR 06/20/2024 9:58 AM BEAD INSPECTOR Zachary Quijano MD CHEMISTRY Final Result Performing Organization Address City/[facility]/ZIP Co de Phone Number [facility] [place] [facility] [address] [place] [address], [place] [phone] [facility] [address] [place] [address] * (ABNORMAL) BASIC METABOLIC PANEL (06/20/2024 9:57 AM BEAD INSPECTOR) [facility] GLUCOSE 86 65 - 99 mg/dL [facility] [...] BLOOD SPECIMEN / Unknown 06/20/2024 9:57 AM BEAD INSPECTOR 06/20/2024 9:58 AM BEAD INSPECTOR us Zachary Quijano MD CHEMISTRY Final Result Performing Organization Address [facility]/ZIP Co de Phone Number [facility] [place] [facility] [address] [place] [address], [place] [phone] [facility] [address] [place] [address] * (ABNORMAL) XR DXA BONE DENSITY 2 SITES AXIAL (04/12/2021 3:45 PM CDT) Anatomical Region Laterality Modality Spine, HIPS, HIPL, HIPR Other Impressions 04/18/2021 2:30 PM BEAD INSPECTOR Osteopenia. RECOMMENDATIONS: The National Osteoporosis Foundation recommends [...] Hannah Kaur PA-C Narrative 04/18/2021 2:30 PM BEAD INSPECTOR For Patients: Results are automatically released to your [facility] account once available, in compliance with federal regulations. This means that you may see your results before your provider has had a chance to review them. Please allow 2-3 business days for your provider to comment on the results. XR DXA Bone Mineral Density (BMD) EXAM LOCATION: [facility] [address] [facility] [address] PATIENT NAME: Shanti Marie DATE OF : [...] two scanners are made by the same software sales. PROCEDURE: Dual-energy x-ray absorptiometry performed with routine [...] MEDICARE PART B HB ONLY BLUE CROSS [place] BLUE MR PB ONLY [employer] [place] [place] BLUE HB ONLY MEDICARE PART A HB ONLY Advance Directives Documents on File Type Date Recorded Patient Shoe Sprayer Expl anation Healthcare Directive 03/20/2008 HEALTH CARE DIRECTIVE, [facility], 03/20/07 * Full Code (Latest Code Status on File) Date Activated Date Inactivated Comments 02/19/2018 3:41 PM 02/19/2018 7:15 PM Question Answer Comments Code Status Discussion: Discussed * Full Code Date Activated Date Inactivated Comments 02/19/2018 10:50 AM 02/19/2018 3:41 PM Question Answer Comments Code Status Discussion: Discussed Care Teams Roll Builder Relationship Specialty Start Date End Date Zachary Quijano MD [address] [place] [address] PCP - General Family Practice 04/17/23 Mike Pichardo MD Cardiology Cardiovascular Disease 01/13/11 [address] [place] [address] [place] [address] Audiology 11/30/09
[2024-08-30 21:41] VITALS: BP 110/72; PULSE 82; RESP 16
== END 2024-08-30 21:42 | disposition home or self-care (01) ==
PROVIDERS: Emergency Provider Emergency Medicine; PCP Family Medicine
DX: M79.662 Pain in left lower leg (principal)
CPT/HCPCS: 93971; 99283; 99284

== ENCOUNTER 2024-10-16 10:30 | Outpatient (RCR) | payer MEDICARE, BC, SELFPAY | END 2024-11-18 16:24 | disposition home or self-care (01) | PROVIDERS: PCP Family Medicine; Visit Provider Family Medicine | DX: M25.511 Pain in right shoulder (principal); Z51.89 Encounter for other specified aftercare | CPT/HCPCS: 97110; 97140; 97161 ==